=== PATIENT | female | born 1965 | race Caucasian/White ===

== ENCOUNTER → 2019-05-05 10:39 | Outpatient (BNVA) | payer MEDICARE, MEDICAID, SELFPAY | PROVIDERS: Family Provider Nurse Practitioner; PCP Nurse Practitioner; Visit Provider Obstetrics & Gynecology Female Pelvic Medicine and Reconstructive Surgery | DX: Z12.4 Encounter for screening for malignant neoplasm of cervix (principal); N39.3 Stress incontinence (female) (male); N95.0 Postmenopausal bleeding; E66.9 Obesity, unspecified; Z71.6 Tobacco abuse counseling | CPT/HCPCS: 81003; 88175 ==

== ENCOUNTER 2019-05-18 04:15 | Emergency (ER) | payer MEDICARE, MEDICAID, SELFPAY ==
[2019-05-18 04:22] VITALS: BP 163/76; PULSE 86; RESP 18; O2SAT 93; BMI 42.9
--- NOTE | 2019-05-18 04:22 | ED_ITS ---
Entered by Flores Mclain, acting as scribe for Arturo Nicole DO HPI - Female Genitourinary General: Chief complaint: Urogenital-Female Stated complaint: possible uti Time Seen by Provider: 05/18/19 04:22 Source: patient Mode of arrival: ambulatory Limitations: no limitations History of Present Illness: HPI Narrative: 53 yo f came to the er pov for a possible uti. Onset was a week ago. Pt said that she has the urge to urinate but only a little comes out. Pt said that she is having trouble urinating. Pt said that she woke up to the pain and having the urge to go to the bathroom and was still having trouble. Pt said that she also has COPD. MD elicited complaint: UTI Onset (ago): week(s) (1 week ago) Severity: mild Quality of pain: sharp Consistency: intermittent Vaginal discharge: none Vaginal bleeding: none Urinary symptoms: Difficulty Urinating Relieving factors: urination (mild) Associated symptoms: Deny abdominal pain or headache(s) Treatment prior to arrival: none Patient : No Date of Last Menstrual Period: 01/31/19 Review of Systems General: Reports: other (negative unless marked) Const: Denies: fever ENMT: Denies: throat pain Card: Denies: chest pain Resp: Denies: shortness of breath GI: Denies: abdominal pain : Reports: difficulty urinating, urinary dribbling and decreased urine ouput Musc: Denies: neck pain Skin/Breast: Denies: rash Neuro: Denies: headache Psych: Denies: anxiety PFSH ED PFSH: Social History Smoking and tobacco status: current every day smoker cigarettes Packs smoked per day: 1 Years cigarettes smoked: 13 Alcohol intake: current Alcohol intake frequency: holidays/special occasions only History of recent travel: No Female Reproductive History: Date of last menstrual period: 01/31/19 Physical Exam Const: COMMON NORMALS: no apparent distress GENERAL APPEARANCE: cooperative and comfortable ORIENTATION/CONSCIOUSNESS: Yes awake, Yes oriented to person, Yes oriented to place and Yes oriented to time HENMT: COMMON NORMALS: normocephalic, head/scalp atraumatic, hearing grossly normal bilaterally, external ears normal, EAC's normal, TM's normal bilaterally, nasal mucous membranes and turbinates normal, moist oral mucous membranes and oropharynx normal HEAD & SCALP: normocephalic and atraumatic NOSE: nasal mucous membranes and turbinates normal EXTERNAL EAR: Yes external ears normal EXTERNAL AUDITORY CANAL: EAC's normal TYMPANIC MEMBRANE: TM's normal bilaterally Eye: COMMON NORMALS: PERRL, EOMs intact bilaterally, conjunctivae normal and no scleral icterus CONJUNCTIVA: Yes conjunctivae normal PUPIL: Yes PERRL Neck/C-Spine: COMMON NORMALS: full ROM, no lymphadenopathy, supple and no JVD Lymph: LYMPHATIC: no lymphadenopathy noted and no lymphedema noted Resp: COMMON NORMALS: normal respiratory effort, no retractions, no use of accessory muscles and clear to auscultation bilaterally AUSCULTATION: clear to auscultation bilaterally Cardio: COMMON NORMALS: no JVD, regular rate, regular rhythm and no murmurs RATE: regular rate RHYTHM: regular rhythm GI: COMMON NORMALS: soft to palpation and no hepatosplenomegaly AUSCULTATION: Yes normoactive bowel sounds PALPATION: Yes soft, No tender, No guarding and Yes no hepatosplenomegaly : COMMON NORMALS: Yes no CVA tenderness BLADDER/KIDNEY EXAM: Yes no CVA tenderness Back/Pelvis: COMMON NORMALS: no CVA tenderness Extremity: COMMON NORMALS: normal to inspection, normal capillary refill, no clubbing, cyanosis or edema, no calf tenderness and no pedal edema Neuro: SENSORIUM/ORIENTATION: Yes oriented to person, Yes oriented to place and Yes oriented to time Skin: COMMON NORMALS: no rashes or lesions noted GENERAL SKIN EXAM: no rashes or lesions noted Course ED course: Reviewed UA. There is fair amount of contamination of urine but she is quite symptomatic and has been for 2 weeks working to go ahead and start on a course of Macrobid she did have improved follow-up with her primary care doctor for further evaluation. Vital Signs: Vital signs: Vital Signs Pulse Rate 86 05/18/19 04:22 Respiratory Rate 18 05/18/19 04:22 Blood Pressure 163/76 05/18/19 04:22 Pulse Oximetry 93 05/18/19 04:22 MDM - Female Lab Data: Labs: Lab Results 05/18/19 Range/Units 04:15 Urine Color Yellow (Yellow) Urine Appearance Hazy A (CLEAR) Urine pH 5 (5-7) Ur Specific Gravit y 1.025 (1.005-1.030) Urine Protein Trace (Negative) Urine Glucose (UA) Norm (Normal) Urine Ketones Negative (Negative) Urine Blood 3+ H (Negative) Urine Nitrate Negative (Negative) Urine Bilirubin Neg (NEGATIVE) Urine Urobilinogen 1 H (Negative) mg/dL Ur Leukocyte Caitlyn ase Negative (Negative) Urine RBC 15-25 H (0-2) /hpf Urine WBC 0-4 H (0-5) /hpf Ur Squamous Epith Cells 40-55 H (0-5) Ur Transition Epit h Cell 0-4 /hpf Urine Bacteria 4+ H (NONE) Urine Mucus 4+ Discharge Plan Discharge Patient Disposition: Home, Self-Care Clinical Impression: Cystitis Condition: Stable Prescriptions: New Macrodantin 100 mg capsule 100 mg PO Q12H 7 Days Qty: 14 RF: 0 No Action albuterol sulfate [Ventolin HFA] 90 mcg/actuation HFA aerosol inhaler 2 puff INHALATION Q6H PRN (Reason: shortness of breath or wheezing) Qty: 18 RF: 2 paliperidone [Invega] 6 mg tablet extended release 24hr 6 mg PO QAM Qty: 30 RF: 2 trazodone 100 mg tablet 100 mg PO DAILY Qty: 30 RF: 2 Discharge Orders: Discharge Order (Routine); Ordered 05/18/19 Ordered By: Arturo Nicole Referrals: Nelly Luevano FNP [Primary Care Provider] - Discharge Diet: Usual diet Discharge Activity: Resume usual activity Patient Instructions: Urinary Tract Infection in Women (ED) Coding Level of Care Code ED Bunk House Worker for Chg Fwd Exam Comprehensive The documentation recorded by the Chemo bethea Stephanie Lyn, accurately reflects the service I personally performed and the decisions made by Bonnie durand Curtis L, DO May 18, 2019 04:15
[2019-05-18 04:46] LABS: Protein Urine Trace (Negative); Specific Gravity, Urine 1.025 (1.005-1.030); Urine Appearance Hazy (CLEAR); Urine Color Yellow (Yellow); pH Urine 5 (5-7)
[2019-05-18 04:47] LABS: Bilirubin Urine Neg (NEGATIVE); Blood Urine 3+ (Negative); Glucose Urine UA Norm (Normal); Ketones Urine Negative (Negative); Leukocyte Esterase Urine Negative (Negative); Nitrate Urine Negative (Negative); Urobilinogen Urine 1 mg/dL (Negative)
[2019-05-18 04:55] LABS: Mucus Urine 4+
[2019-05-18 04:56] LABS: RBC Urine 15-25 /hpf (0-2); WBC Urine 0-4 /hpf (0-5)
[2019-05-18 04:57] LABS: Add Urine Culture? No; Bacteria Urine 4+; Squamous Epithelial Cell Urine 40-55 (0-5); Transitional Epi Cells Urine 0-4 /hpf
[2019-05-18 05:07] VITALS: BP 146/54; PULSE 77; RESP 18; O2SAT 96
== END 2019-05-18 05:09 | disposition home or self-care (01) ==
PROVIDERS: Emergency Provider Family Medicine; Family Provider Nurse Practitioner; PCP Nurse Practitioner
DX: N30.90 Cystitis, unspecified without hematuria (principal); F17.210 Nicotine dependence, cigarettes, uncomplicated
CPT/HCPCS: 12345; 81001; 99282; A9270

== ENCOUNTER → 2019-05-29 10:19 | Outpatient (BNVA) | payer MEDICARE, MEDICAID, SELFPAY | PROVIDERS: Family Provider Nurse Practitioner; PCP Nurse Practitioner; Visit Provider Nurse Practitioner | DX: N39.0 Urinary tract infection, site not specified (principal); R35.0 Frequency of micturition; R39.11 Hesitancy of micturition | CPT/HCPCS: 81000; 87086 ==

== ENCOUNTER 2019-08-02 05:00 | Emergency (ER) | payer MEDICARE, MEDICAID, SELFPAY ==
[2019-08-02 05:10] VITALS: BP 123/59; PULSE 78; RESP 16; TEMP 36.4; O2SAT 96; BMI 41.1
--- NOTE | 2019-08-02 05:22 | ED_ITS ---
HPI - Female Genitourinary General: Chief complaint: Urogenital-Female Stated complaint: difficulty urinating Time Seen by Provider: 08/02/19 05:22 History of Present Illness: HPI Narrative: 53-year-old female states she has been battling urinary tract infections for the last couple of months. She has been on 2 different antibiotics, with temporary relief. She states for the last several days she has had significant urgency, having to run to the bathroom quite often. She only goes a little when she is able to go. She has mild dysuria. She does have some mild pain across her back as well. No fever or chills. No vomiting. She states no blood in her urine, no vaginal discharge or vaginal bleeding. MD elicited complaint: dysuria, UTI and difficulty urinating Onset (ago): day(s) Location of symptoms: suprapubic Severity: moderate Female Urogenital Radiation: Non-Radiating Quality of pain: cramping Consistency: intermittent Vaginal discharge: none Vaginal bleeding: none Urinary symptoms: Difficulty Urinating and Dysuria Exacerbating factors: none Relieving factors: urination Associated symptoms: Reports nausea; Deny abdominal pain or headache(s) Review of Systems Const: Denies: fever(s) or chills Eyes: Denies: change in vision or blurry vision ENMT: Denies: post nasal drip or sinus pain Card: Denies: chest pain, palpitations, irregular heart rhythm or swelling of feet/ankles Resp: Denies: dyspnea, productive cough, non-productive cough or wheezing GI: Reports: nausea; Denies: abdominal pain or vomiting : Reports: dysuria, urinary frequency and urinary urgency; Denies: hematuria Musc: Reports: back pain; Denies: neck pain, joint redness or joint warmth Skin/Breast: Denies: rash, pruritus or erythema Neuro: Denies: headache(s), dizziness or vertigo Psych: Denies: anxiety PFSH ED PFSH: Medical History (Updated 05/29/19 @ 10:56 by LISA Augustin) COPD (chronic obstructive pulmonary disease) Depression Schizophrenia Surgical History History of hernia repair Family History Father Cancer Diabetes Heart disease Family/Other Cervical cancer Social History Smoking and tobacco status: current every day smoker cigarettes Packs smoked per day: 1 Years cigarettes smoked: 13 Alcohol intake: current Alcohol intake frequency: holidays/special occasions only History of recent travel: No Physical Exam Const: GENERAL APPEARANCE: well developed ORIENTATION/CONSCIOUSNESS: Yes oriented to person, Yes oriented to place and Yes oriented to time HENMT: COMMON NORMALS: normocephalic, external ears normal and Normal external nose present HEAD & SCALP: normocephalic FACE & SINUS: normal facial exam NOSE: Normal external nose present and No nasal discharge present EXTERNAL EAR: Yes external ears normal MOUTH: tongue normal Eye: COMMON NORMALS: Equal, round and reactive pupils present, EOMs intact bilaterally and conjunctivae normal EYELID: eyelids normal CONJUNCTIVA: Yes conjunctivae normal PUPIL: Yes Equal, round and reactive pupils present Neck/C-Spine: GENERAL: No tracheal deviation Chest: COMMONS NORMALS: normal inspection of the chest CHEST: No tenderness Resp: COMMON NORMALS: clear to auscultation bilaterally EFFORT & INSPECTION: No tachypneic, No respiratory distress, No retractions, No uses accessory muscles and No tracheal deviation AUSCULTATION: clear to auscultation bilaterally, no rhonchi, no wheezes and lung sounds not diminished Cardio: COMMON NORMALS: regular rate and regular rhythm RATE: regular rate RHYTHM: regular rhythm HEART SOUNDS: no murmurs PERIPHERAL PULSES: radial pulses present GI: INSPECTION: No abdominal distension AUSCULTATION: No Hyperactive bowel sounds present and No Hypoactive bowel sounds present PALPATION: No Guarding due to palpation present (GI) and No Rigid due to palpation PERCUSSION: no dullness to percussion and no tympanic to percussion : COMMON NORMALS: Yes no CVA tenderness BLADDER/KIDNEY EXAM: Yes no CVA tenderness Back/Pelvis: COMMON NORMALS: no CVA tenderness Neuro: SENSORIUM/ORIENTATION: Yes oriented to person, Yes oriented to place and Yes oriented to time Psych: COMMON NORMALS: mental status grossly normal Skin: COMMON NORMALS: no rashes or lesions noted GENERAL SKIN EXAM: no rashes or lesions noted Course Vital Signs: Vital signs: Vital Signs Temperature 97.6 F 08/02/19 05:10 Pulse Rate 78 06/01/20 05:10 Respiratory Rate 16 08/02/19 05:10 Blood Pressure 123/59 08/02/19 05:10 Pulse Oximetry 96 08/02/19 05:10 MDM - Female 2 MDM Narrative: Medical decision making narrative: 53-year-old lady with dysuria frequency and urgency. She has been treated twice for urinary tract infections in the last couple of months without permanent improvement. Her urinalysis does not show significant signs of urinary tract infection although it is contaminated. She does have significant hematuria. We will repeat her urine with a cath, order some lab and CT as there is some concern about another possible etiology such as a stone. She will be checked out to Dr. Campoverde at shift change. Lab Data: Labs: Lab Results 08/02/19 Range/Units 05:30 Urine Color Yellow (Yellow) Urine Appearance Hazy A (CLEAR) Urine pH 5 (5-7) Ur Specific Gravit y 1.025 (1.005-1.030) Urine Protein 1+ H (Negative) Urine Glucose (UA) Norm (Normal) Urine Ketones 1+ H (Negative) Urine Blood 3+ H (Negative) Urine Nitrate Negative (Negative) Urine Bilirubin Neg (NEGATIVE) Urine Urobilinogen 1 H (Negative) mg/dL Ur Leukocyte Caitlyn ase Trace H (Negative) Urine RBC 25-40 H (0-2) /hpf Urine WBC 5-10 H (0-5) /hpf Ur Squamous Epith Cells 15-25 H (0-5) Urine Bacteria 2+ H (NONE) Discharge Plan Discharge Prescriptions: No Action albuterol sulfate [Ventolin HFA] 90 mcg/actuation HFA aerosol inhaler 2 puff INHALATION Q6H PRN (Reason: shortness of breath or wheezing) Qty: 18 RF: 2 paliperidone [Invega] 6 mg tablet extended release 24hr 6 mg PO QAM Qty: 30 RF: 2 trazodone 100 mg tablet 100 mg PO DAILY Qty: 30 RF: 2 Coding Level of Care Code ED Patient Escort for Chg Fwd Exam Comprehensive
[2019-08-02 06:10] LABS: Add Urine Microscopic? YES; Bilirubin Urine Neg (NEGATIVE); Blood Urine 3+ (Negative); Glucose Urine UA Norm (Normal); Ketones Urine 1+ (Negative); Leukocyte Esterase Urine Trace (Negative); Nitrate Urine Negative (Negative); Protein Urine 1+ (Negative); Specific Gravity, Urine 1.025 (1.005-1.030); Urine Appearance Hazy (CLEAR); Urine Color Yellow (Yellow); Urobilinogen Urine 1 mg/dL (Negative); pH Urine 5 (5-7)
[2019-08-02 06:11] LABS: Add Urine Culture? No; Bacteria Urine 2+; RBC Urine 25-40 /hpf (0-2); Squamous Epithelial Cell Urine 15-25 (0-5)
--- NOTE | 2019-08-02 06:22 | CTR_ITS ---
PROCEDURE INFORMATION: Exam: CT Abdomen And Pelvis With Contrast Exam date and time: 08/02/2019 6:32 AM Age: 53 years old Clinical indication: Abdominal pain; Localized; Right; Prior surgery; Surgery type: Hernia repair; Patient HX: RT sided abdomen pain. Patient states has been dealing with urinary infection for a few weeks. TECHNIQUE: Imaging protocol: Computed tomography of the abdomen and pelvis with intravenous contrast. Radiation optimization: All CT scans at this facility use at least one of these dose optimization techniques: automated exposure control; mA and/or kV adjustment per patient size (includes targeted exams where dose is matched to clinical indication); or iterative reconstruction. Contrast material: Omnipaque 300; Contrast volume: 95 ml; Contrast route: IV; COMPARISON: No relevant prior studies available. RADIATION DOSE METRICS: Total DLP: 1288.03 mGy-cm FINDINGS: Liver: Mild diffuse hypoattenuation of the liver is present consistent with hepatic steatosis. Gallbladder and bile ducts: The gallbladder is partially contracted. Pancreas: Normal. No ductal dilation. Spleen: Normal. No splenomegaly. Adrenals: Normal. No mass. Kidneys and ureters: The right pelvic ureter is mildly dilated to the level of a 4.9 x 2.9 mm calculus at the ureterovesical junction. The right kidney shows moderate pelviectasis and mild abdominal ureterectasis with mild central sinus perinephric stranding. Mildly diminished right renal enhancement. Left mid renal 1.5 mm calyceal calculus. 8.4 mm left renal benign simple cyst. Smaller left renal lower pole exophytic benign simple cyst. No specific followup required/recommended. Stomach and bowel: Unremarkable. No obstruction. No mucosal thickening. Appendix: The vermiform appendix is normal. Intraperitoneal space: Unremarkable. No free air. No significant fluid collection. Vasculature: Mild aortic atherosclerotic calcification without aneurysm. The iliac arteries show mild bilateral atherosclerotic calcifications without evidence of aneurysm. Lymph nodes: No enlarged lymph nodes. Bladder: The urinary bladder is decompressed and difficult to assess. Reproductive: 2.4 cm right uterine corporal subserosal leiomyoma. Left uterine fundal 17 mm subserosal leiomyoma. Bones/joints: Bilateral lower lumbar facet primary osteoarthritis. Soft tissues: Unremarkable. CT/CT abdomen pelvis w con* [id number] IMPRESSION: 1. Right obstructive uropathy secondary to a right ureterovesical junction calculus. 2. Left renal calyceal lithiasis. 3. Uterine leiomyomas. 4. Fatty infiltration of the liver. COMMENTS: Consistent with the [employer]'s Incidental Findings Committee white paper (J Am Sendy Radiol 2018): Any incidental renal lesion less than 1.0 cm or classified as too small to characterize, or any incidental cystic renal lesion characterized as simple-appearing, is likely benign. No follow-up imaging is recommended for these lesions per consensus recommendations based on imaging criteria. Radiation Dose CTDIVOL = (mGy): DLP = 1288.03 (mGy-cm)
[2019-08-02 06:53] LABS: Basophils # 0.1 10^3/uL (0.0-0.1); Basophils % 0.5 %; Eosinophils # 0.2 10^3/uL (0.0-0.8); Eosinophils % 0.8 %; Hematocrit 47.2 % (37.0-47.0); Hemoglobin 15.1 g/dL (11.5-15.3); Lymphocytes # 6.6 10^3/uL (0.8-4.8); Mean Corpuscular Hemoglobin 31.1 pg (28.0-34.0); Mean Corpuscular Volume 97.3 fL (81-99); Mean Platelet Volume 9.6 fL (7.4-10.4); Monocytes # 1.3 10^3/uL (0.2-0.9); Monocytes % 6.7 %; Neutrophils # 11.7 10^3/uL (1.8-7.7); Neutrophils % 58.6 %; Nucleated Red Blood Cells % 0 %; Platelet Count 413 10^3/cmm (130-400); Red Blood Count 4.85 10^6/uL (4.1-5.3); Red Cell Distribution Width 13.4 % (12.1-15.1); White Blood Count 19.9 10^3/uL (4.0-10.0)
[2019-08-02] MEDS: sodium chloride 0.9% 1,000 ML 2000 ML IV (06:56)
[2019-08-02 06:57] VITALS: BP 116/73; PULSE 68; RESP 18; O2SAT 94
[2019-08-02 07:11] LABS: Alanine Aminotransferase 20 U/L (0-33); Albumin Level 4.6 g/dL (3.5-5.2); Alkaline Phosphatase 89 IU/L (35-105); Anion Gap 16.3 (5-19); Aspartate Amino Transferase 18 U/L (0-32); Blood Urea Nitrogen 20 mg/dL (6-20); Carbon Dioxide 23 mmol/L (22-29); Chloride 104 mmol/L (98-107); Globulin 2.5 g/dL (1.3-4.6); Glucose 105 mg/dL (65-115); Osmolality Calculated 285 mOsm/kg (285-295); Potassium 4.3 mmol/L (3.5-5.1); Sodium 139 mmol/L (136-145); Total Bilirubin 0.4 mg/dL (0.15-1.2); Total Protein 7.1 g/dL (6.6-8.7)
[2019-08-02] MEDS: iohexol 300 mg/mL 100 mL Btl IV (07:11)
[2019-08-02 07:36] LABS: Bilirubin Urine 1+ (NEGATIVE); Blood Urine 3+ (Negative); Glucose Urine UA Norm (Normal); Ketones Urine 1+ (Negative); Leukocyte Esterase Urine Negative (Negative); Nitrate Urine Negative (Negative); Protein Urine 1+ (Negative); Urine Appearance SL Hazy (CLEAR); Urine Color Yellow (Yellow); Urobilinogen Urine 1 mg/dL (Negative); pH Urine 5 (5-7)
[2019-08-02 07:47] LABS: Add Urine Microscopic? YES
[2019-08-02 08:00] VITALS: RESP 16; O2SAT 97
[2019-08-02] MEDS: morphine 4 mg/mL SDV 1 mL 6 MG IVP (08:00)
[2019-08-02] MEDS: ondansetron 2 mg/ML SDV 2 mL 4 MG IVP (08:01)
[2019-08-02 08:54] VITALS: BP 131/72; PULSE 83; RESP 16; RESP 17; O2SAT 98
--- NOTE | 2019-08-04 14:27 | DCPLANNER ---
Addendum entered by Lauryn Kohli 08/11/19 15:10: Clinic is waiting for patient to call clinic after being released from the hospital. Original Note: truck manager had message to schedule a follow up appointment for patient with Dr. Oliva. truck manager called the office of Dr. Oliva, spoke with Mis, gave clinic patients information. truck manager was told that patients information would be printed and given to [place] for review. Clinic will call patient with appointment information.
== END 2019-08-02 08:56 | disposition home or self-care (01) ==
PROVIDERS: Emergency Medicine; Emergency Provider Family Medicine; PCP Nurse Practitioner
DX: N20.1 Calculus of ureter (principal); J44.9 Chronic obstructive pulmonary disease, unspecified; F17.210 Nicotine dependence, cigarettes, uncomplicated
CPT/HCPCS: 12345; 51798; 74177; 80053; 81001; 85025; 87086; 96374; 96375; 99283; 99284; J2270; J2405; J7030; Q9967

== ENCOUNTER 2019-08-03 10:29 | Inpatient (IN) | payer MEDICARE, MEDICAID, SELFPAY ==
[2019-08-03 10:35] VITALS: BP 157/102; PULSE 114; RESP 18; TEMP 36.9; O2SAT 96; BMI 41.1
--- NOTE | 2019-08-03 10:49 | W.ED.PSYCH ---
HPI - Psych General: Chief Complaint: Psychiatric Symptoms Stated Complaint: 96 HR HOLD Time Seen by Provider: 08/03/19 10:33 History of Present Illness: HPI Narrative: She arrives in the custody of law enforcement. Patient states that her and her are , and that he had let unknown people in the house during the night. Law enforcement was not able to find any evidence that anyone else had been at the home. MD complaint: altered mental status Onset (ago): unknown Duration: constant Relieving factors: none Exacerbating factors: none Context: recent drug abuse (Suspected by me) Associated psychiatric symptoms: visual hallucinations and delusions Associated symptoms: Reports visual hallucinations and delusions Treatments prior to arrival: none Review of Systems General: Reports: 10 or more systems reviewed and unremarkable except in HPI and below Psych: Reports: visual hallucinations PFS ED PFSH: Medical History COPD (chronic obstructive pulmonary disease) Depression Schizophrenia Surgical History History of hernia repair Family History Father Cancer Diabetes Heart disease Family/Other Cervical cancer Social History Smoking and tobacco status: current every day smoker cigarettes Packs smoked per day: 1 Years cigarettes smoked: 13 Alcohol intake: current Alcohol intake frequency: holidays/special occasions only History of recent travel: No Physical Exam Const: COMMON NORMALS: no acute distress, patient oriented x3 and alert HENMT: COMMON NORMALS: normocephalic HEAD & SCALP: normocephalic Neck/C-Spine: COMMON NORMALS: full ROM, supple, no meningeal signs and no JVD Resp: COMMON NORMALS: normal respiratory effort, No use of accessory muscles and clear to auscultation bilaterally AUSCULTATION: clear to auscultation bilaterally Cardio: COMMON NORMALS: no JVD, regular rate and regular rhythm RATE: regular rate RHYTHM: regular rhythm Neuro: COMMON NORMALS: patient oriented x3 SENSORIUM/ORIENTATION: Yes alert MENINGEAL SIGNS: Yes no meningeal signs Psych: APPEARANCE: Yes unkempt ACTIVITY/MOTOR BEHAVIOR: Yes psychomotor agitation, Yes fidgeting and Yes restless MOOD & AFFECT: Yes apathetic THOUGHT CONTENT: Yes delusions and Yes Hallucination(s) present MDM - Psych Lab Data: Labs: Lab Results 08/03/19 08/03/19 08/03/19 Range/Units 10:48 10:48 10:50 WBC 13.8 H (4.0-10.0) 10^3/ uL RBC 4.57 (4.1-5.3) 10^6/u L Hgb 14.8 (11.5-15.3) g/dL Hct 44.7 (37.0-47.0) % MCV 97.8 (81-99) fL MCH 32.4 (28.0-34.0) pg MCHC 33.1 (30.0-36.0) g/dL RDW 13.5 (12.1-15.1) % Plt Count 361 (130-400) 10^3/c mm MPV 9.3 (7.4-10.4) fL Neut % (Auto) 56.0 % Lymph % (Auto) 35.3 % Jackson % (Auto) 5.9 % Eos % (Auto) 2.0 % Baso % (Auto) 0.4 % Neut # (Auto) 7.8 H (1.8-7.7) 10^3/u L Lymph # (Auto) 4.9 H (0.8-4.8) 10^3/u L Jackson # (Auto) 0.8 (0.2-0.9) 10^3/u L Eos # (Auto) 0.3 (0.0-0.8) 10^3/u L Baso # (Auto) 0.1 (0.0-0.1) 10^3/u L Nucleated RBC % (a uto) 0 % Nucleated RBCs # 0.0 /100WBC Sodium 138 (136-145) mmol/L Potassium 3.9 (3.5-5.1) mmol/L Chloride 103 (98-107) mmol/L Carbon Dioxide 23 (22-29) mmol/L Anion Gap 15.9 (5-19) BUN 11 (6-20) mg/dL Creatinine 0.7 (0.5-0.9) mg/dL GFR Calculation 87.5 L (90-130) mL/min Glucose 136 H (65-115) mg/dL Calculated Osmolal ity 284 L (285-295) mOsm/k g Calcium 10.1 (8.5-10.5) mg/dL Total Bilirubin 0.5 (0.15-1.2) mg/dL AST 24 (0-32) U/L ALT 22 (0-33) U/L Alkaline Phosphata se 86 (35-105) IU/L Total Protein 7.0 (6.6-8.7) g/dL Albumin 4.5 (3.5-5.2) g/dL Globulin 2.5 (1.3-4.6) g/dL TSH 2.50 (0.27-4.20) uIU/ mL Urine Color Yellow (Yellow) Urine Appearance Hazy A (CLEAR) Urine pH 5.0 (5-7) Ur Specific Gravit y 1.025 (1.005-1.030) Urine Protein Neg (Negative) Urine Glucose (UA) Norm (Normal) Urine Ketones Negative (Negative) Urine Blood Neg (Negative) Urine Nitrate Negative (Negative) Urine Bilirubin Neg (NEGATIVE) Urine Urobilinogen Norm (Negative) mg/dL Ur Leukocyte Caitlyn ase Negative (Negative) Urine RBC 0-4 H (0-2) /hpf Urine WBC 5-10 H (0-5) /hpf Ur Squamous Epith Cells 15-25 H (0-5) Urine Bacteria 1+ H (NONE) Urine Mucus 2+ Salicylates < 0.3 L (3-10) mg/dL Urine Opiates Scre en (Negative) ng/mL Acetaminophen < 5.0 L (10-30) ug/mL Ur Barbiturates Sc reen (Negative) ng/mL Ur Phencyclidine S crn (Negative) ng/mL Ur Amphetamines Sc reen (Negative) ng/mL U Benzodiazepines Scrn (Negative) ng/mL Urine Cocaine Scre en (Negative) ng/mL U Marijuana (THC) Screen (Negative) ng/mL Ethyl Alcohol < 10 (0-10) mg/dL 08/03/19 Range/Units 10:50 WBC (4.0-10.0) 10^3/ uL RBC (4.1-5.3) 10^6/u L Hgb (11.5-15.3) g/dL Hct (37.0-47.0) % MCV (81-99) fL MCH (28.0-34.0) pg MCHC (30.0-36.0) g/dL RDW (12.1-15.1) % Plt Count (130-400) 10^3/c mm MPV (7.4-10.4) fL Neut % (Auto) % Lymph % (Auto) % Jackson % (Auto) % Eos % (Auto) % Baso % (Auto) % Neut # (Auto) (1.8-7.7) 10^3/u L Lymph # (Auto) (0.8-4.8) 10^3/u L Jackson # (Auto) (0.2-0.9) 10^3/u L Eos # (Auto) (0.0-0.8) 10^3/u L Baso # (Auto) (0.0-0.1) 10^3/u L Nucleated RBC % (a uto) % Nucleated RBCs # /100WBC Sodium (136-145) mmol/L Potassium (3.5-5.1) mmol/L Chloride (98-107) mmol/L Carbon Dioxide (22-29) mmol/L Anion Gap (5-19) BUN (6-20) mg/dL Creatinine (0.5-0.9) mg/dL GFR Calculation (90-130) mL/min Glucose (65-115) mg/dL Calculated Osmolal ity (285-295) mOsm/k g Calcium (8.5-10.5) mg/dL Total Bilirubin (0.15-1.2) mg/dL AST (0-32) U/L ALT (0-33) U/L Alkaline Phosphata se (35-105) IU/L Total Protein (6.6-8.7) g/dL Albumin (3.5-5.2) g/dL Globulin (1.3-4.6) g/dL TSH (0.27-4.20) uIU/ mL Urine Color (Yellow) Urine Appearance (CLEAR) Urine pH (5-7) Ur Specific Gravit y (1.005-1.030) Urine Protein (Negative) Urine Glucose (UA) (Normal) Urine Ketones (Negative) Urine Blood (Negative) Urine Nitrate (Negative) Urine Bilirubin (NEGATIVE) Urine Urobilinogen (Negative) mg/dL Ur Leukocyte Caitlyn ase (Negative) Urine RBC (0-2) /hpf Urine WBC (0-5) /hpf Ur Squamous Epith Cells (0-5) Urine Bacteria (NONE) Urine Mucus Salicylates (3-10) mg/dL Urine Opiates Scre en Negative (Negative) ng/mL Acetaminophen (10-30) ug/mL Ur Barbiturates Sc reen Negative (Negative) ng/mL Ur Phencyclidine S crn Negative (Negative) ng/mL Ur Amphetamines Sc reen Positive H (Negative) ng/mL U Benzodiazepines Scrn Negative (Negative) ng/mL Urine Cocaine Scre en Negative (Negative) ng/mL U Marijuana (THC) Screen Positive H (Negative) ng/mL Ethyl Alcohol (0-10) mg/dL Discharge Plan Discharge Patient Disposition: Admitted As Inpatient Clinical Impression: Acute psychosis, Methamphetamine abuse Drug-induced psychotic disorder Qualifiers: Complication of substance-induced condition: with hallucinations Qualified Code(s): F19.951 - Other psychoactive substance use, unspecified with psychoactive substance-induced psychotic disorder with hallucinations Condition: Fair Referrals: Nelly Luevano FNP [Primary Care Provider] - Coding Level of Care Code ED Highway Safety Engineer for [facility] Fwd Exam Detailed
[2019-08-03 10:52] LABS: Basophils # 0.1 10^3/uL (0.0-0.1); Basophils % 0.4 %; Eosinophils # 0.3 10^3/uL (0.0-0.8); Hematocrit 44.7 % (37.0-47.0); Hemoglobin 14.8 g/dL (11.5-15.3); Lymphocytes # 4.9 10^3/uL (0.8-4.8); Lymphocytes % 35.3 %; Mean Corpuscular HGB Conc 33.1 g/dL (30.0-36.0); Mean Corpuscular Hemoglobin 32.4 pg (28.0-34.0); Mean Corpuscular Volume 97.8 fL (81-99); Mean Platelet Volume 9.3 fL (7.4-10.4); Monocytes # 0.8 10^3/uL (0.2-0.9); Monocytes % 5.9 %; Neutrophils # 7.8 10^3/uL (1.8-7.7); Nucleated Red Blood Cells % 0 %; Platelet Count 361 10^3/cmm (130-400); Red Blood Count 4.57 10^6/uL (4.1-5.3); Red Cell Distribution Width 13.5 % (12.1-15.1); White Blood Count 13.8 10^3/uL (4.0-10.0)
[2019-08-03] MEDS: ziprasidone 20 mg/mL SDV 10 MG IM (11:16)
[2019-08-03 11:21] LABS: Alanine Aminotransferase 22 U/L (0-33); Albumin Level 4.5 g/dL (3.5-5.2); Alkaline Phosphatase 86 IU/L (35-105); Anion Gap 15.9 (5-19); Aspartate Amino Transferase 24 U/L (0-32); Blood Urea Nitrogen 11 mg/dL (6-20); Calcium 10.1 mg/dL (8.5-10.5); Carbon Dioxide 23 mmol/L (22-29); Chloride 103 mmol/L (98-107); Globulin 2.5 g/dL (1.3-4.6); Glomerular Filtration Rate 87.5 mL/min (90-130); Glucose 136 mg/dL (65-115); Osmolality Calculated 284 mOsm/kg (285-295); Potassium 3.9 mmol/L (3.5-5.1); Sodium 138 mmol/L (136-145); Total Bilirubin 0.5 mg/dL (0.15-1.2)
[2019-08-03 11:34] LABS: Acetaminophen < 5.0 ug/mL (10-30); Alcohol Level < 10 mg/dL (0-10); Salicylate < 0.3 mg/dL (3-10)
[2019-08-03 11:42] LABS: Add Urine Culture? No; Add Urine Microscopic? YES; Bacteria Urine 1+; Bilirubin Urine Neg (NEGATIVE); Blood Urine Neg (Negative); Glucose Urine UA Norm (Normal); Ketones Urine Negative (Negative); Leukocyte Esterase Urine Negative (Negative); Mucus Urine 2+; Nitrate Urine Negative (Negative); Protein Urine Neg (Negative); RBC Urine 0-4 /hpf (0-2); Specific Gravity, Urine 1.025 (1.005-1.030); Squamous Epithelial Cell Urine 15-25 (0-5); Urine Appearance Hazy (CLEAR); Urine Color Yellow (Yellow); Urobilinogen Urine Norm (Negative)
[2019-08-03 12:38] LABS: Amphetamines Screen Urine Positive (Negative); Barbiturates Screen Urine Negative (Negative); Benzodiazepines Screen Urine Negative (Negative); Cocaine Screen Urine Negative (Negative); Opiate Screen Urine Negative (Negative); PCP Screen Urine Negative (Negative); THC Screen Urine Positive (Negative)
[2019-08-03 14:00] VITALS: BP 99/63; PULSE 72; RESP 18; TEMP 36.8; O2SAT 90
[2019-08-03 14:20] VITALS: BP 109/69; PULSE 98; RESP 18; O2SAT 99
[2019-08-03 22:00] VITALS: BP 120/71; PULSE 72; RESP 16; TEMP 37.2; O2SAT 93
[2019-08-04 06:00] VITALS: BP 154/112; PULSE 81; RESP 16; TEMP 37.1; O2SAT 92
[2019-08-04] MEDS: paliperidone ER 6 mg Tablet PO (06:34)
[2019-08-04] MEDS: tamsulosin 0.4 mg Capsule PO (08:58)
--- NOTE | 2019-08-04 10:02 | P.HP_ITS ---
Providers/Chief Complaint Admitting Physician: Collins Palmer MD Primary Care Provider: LISA Monte Chief Complaint: 96 HR HOLD HPI NPU History of Present Illness Ann Gerber is a 53 year old female The patient presented to the emergency room reporting that her and her had been , and that he had let some people into her home during the night. She arrived with law enforcement who could not find any evidence that anyone else had been in the home, so they brought her to the emergency room secondary to acute psychosis. She was admitted to the neuropsychiatric unit for definitive treatment of those issues. When she presented to the neuropsychiatric unit, she was able to acknowledge that she has significant issues with active addiction. Her UDS was positive for methamphetamine. She was a limited historian but did report that she has been having problems with her addiction for at least one year. She reports that she has had some other hospitalizations but was unable to give some sense of how long. She endorsed that she was struggling with depression and felt that she needs help. We discussed her psychotic symptoms and she seemed to suggest that she has had them predating the methamphetamine abuse, so we discussed the risks, benefits, and alternatives of initiating Invega, and she understood and agreed to proceed as is documented in this note. PSYCHIATRIC HISTORY: Limited information from her but appears she has had previous psychiatric care, but not here at [facility], so we can not find any evidence of that. SUBSTANCE ABUSE HISTORY: She endorses that she does smoke cigarettes, and acknowledges her metham phetamine issues, but there is no sense of whether she has had drug rehabilitations or DUIs. FAMILY HISTORY: She denied significant mental health issues, addiction issues, or suicide attempts or completions in her family. DEVELOPMENTAL HISTORY: She denies any issues with her mother?s or delivery of her. She reports she learned how to walk and talk and met developmental milestones on time. She denies speech therapy, learning support, emotional support, or special education classes. PSYCHOSOCIAL HISTORY: She reports that her mother and father were together when she was born. She is the youngest of their two children; she has an older brother. She reports her mom does not have any other children, but she is not sure if her dad does. She reports that her childhood was alright and that there was no emotional, physical, or sexual abuse. She reports that she did not graduate from high school, she went until tenth grade; and it was unclear of whether or not she got her GED. She endorses being a heterosexual, with her longest relationship being fourteen years. She endorses being once and never . She denies having any children. She denies being in the . She endorses being a Hindu. She reports that her longest job was a couple of years. She currently lives in a trailer with her significant other. LEGAL HISTORY: She reports that she has been in residential a couple of times but could not give a lot of history on that. Meds NPU Home Medications Medication Instructions Recorded Confirmed Last Taken Type Flomax 0.4 mg PO DAILY 30 Days #30 cap 08/07/19 08/03/19 08/03/19 Rx Invega 6 mg PO QAM 30 Days #30 tab 08/07/19 08/03/19 08/03/19 Rx Ventolin HFA 2 puff INHALATION Q6H PRN 30 Days 08/07/19 08/03/19 08/03/19 Rx #18 gm Zofran 4 mg PO Q6H PRN 30 Days #20 tab 08/07/19 08/03/19 08/03/19 Rx hydrocodone-acetaminophen 1 tab PO Q6H PRN 30 Days #20 tab 08/07/19 08/03/19 08/03/19 Rx trazodone 100 mg PO DAILY 30 Days #30 tab 08/07/19 08/03/19 08/02/19 Rx Allergies Allergy/AdvReac Type Severity Reaction Status Date / Time No Known Allergies Allergy Verified 08/03/19 10:42 PFSH NPU PFSH: Medical History COPD (chronic obstructive pulmonary disease) Depression Schizophrenia Surgical History History of hernia repair Family History Father Cancer Diabetes Heart disease Family/Other Cervical cancer Social History Smoking and tobacco status: current every day smoker cigarettes Packs smoked per day: 1 Years cigarettes smoked: 13 Alcohol intake: current Alcohol intake frequency: holidays/special occasions only History of recent travel: No Mental Status Exam MSE Comments: This is an obese vs. morbidly obese, white female, with adequate dress, grooming, and eye contact. No abnormal movements, except for psychomotor retardation. Semi-cooperative with exam in no acute distress. Speech was decreased rate and volume. Mood described as okay; affect subdued. Thought process, organized. Thought content: patient denied any suicidal or homicidal ideation, there were no delusions reported but there was paranoia noted, she did not appear to be attending to internal stimuli. Attention and concentration were limited, and memory was unreliable, but none were formally tested. She is alert and oriented times three. Insight and judgment are impaired. Impulse control is impaired. Vitals/I&O/Wt Last Vital Signs Temp 98.8 F 08/04/19 06:00 Pulse 81 08/04/19 06:00 Resp 16 08/04/19 06:00 BP 154/112 08/04/19 06:00 Pulse Ox 92 08/04/19 06:00 Data NPU : 08/03/19 10:48 08/03/19 10:48 A&P Assessment and plan (1) Schizophrenia: Status: Acute (2) Skin lesion of lower extremity: Status: Acute (3) COPD (chronic obstructive pulmonary disease): Status: Acute (4) Post-menopausal bleeding: Status: Acute (5) AMBER (stress urinary incontinence, female): Status: Acute (6) Obesity (BMI 35.0-39.9 without comorbidity): Status: Acute (7) Tobacco abuse counseling: Status: Acute (8) UTI (urinary tract infection): Status: Acute Additional A&P Information This is a 53 year old, white female, with reports of psychosis predating addiction, with methamphetamine use, which is either contributing to or causing the current psychotic episode that brought her to the hospital, who presents open to starting medication. Continue current medications, except: Start Invega 6 mg po q daily. Encourage individual, group, and milieu therapy. Continue q-15 minute checks for safety. Will encourage her to discharge to the highest level of sober living treatment to which she is willing to commit. Involuntary Hold Information 96 Hour Hold: 96 Hour Involuntary Admission: No 21 Day Hold: 21 Day Involuntary Hold: No Other Hold: Other Involuntary Hold (indicate): No Attestations NPU Medical Necessity Statement*: Inpatient hospitalization is medically necessary and the clinically appropriate intervention, at this time. Patient will be in the hospital for over two midnights. We will monitor medications and make adjustments as indicated. Likely length of stay is three to five days. Coding Level of Care Code Acute Public Relations Account Executive for Chg Fwd Diagnoses Schizophrenia F20.9 Skin lesion of lower extremity L98.9 COPD (chronic obstructive pulmonary disease) J44.9 Post-menopausal bleeding N95.0 AMBER (stress urinary incontinence, female) N39.3 Obesity (BMI 35.0-39.9 without comorbidity) E66.9 Tobacco abuse counseling Z71.6 UTI (urinary tract infection) N39.0
--- NOTE | 2019-08-04 10:58 | PC.RESP ---
SMOKING CESSATION AND PULMONARY REHAB INFORMATION SENT TO PATIENT.
[2019-08-04 14:00] VITALS: BP 109/71; PULSE 68; RESP 20; TEMP 36.6; O2SAT 95
[2019-08-04 22:00] VITALS: BP 121/71; PULSE 82; RESP 20; TEMP 36.7; O2SAT 93
[2019-08-05 06:00] VITALS: BP 115/77; PULSE 70; RESP 20; TEMP 36.7; O2SAT 94
[2019-08-05] MEDS: paliperidone ER 6 mg Tablet PO (06:58)
[2019-08-05] MEDS: tamsulosin 0.4 mg Capsule PO (09:34)
[2019-08-05 14:00] VITALS: BP 113/73; PULSE 74; RESP 18; TEMP 36.7; O2SAT 91
[2019-08-05] MEDS: albuterol 8 gm MDI 2 PUFF INHALATION (19:58)
[2019-08-05 19:59] VITALS: PULSE 98; RESP 22; O2SAT 95
[2019-08-05 20:40] VITALS: BP 124/79; PULSE 78; RESP 20; TEMP 36.7; O2SAT 92
--- NOTE | 2019-08-05 21:02 | P.HP_ITS ---
Providers/Chief Complaint Admitting Physician: Collins Palmer MD Primary Care Provider: LISA Monte Chief Complaint: 96 HR HOLD HPI NPU History of Present Illness Ann Gerber is a 53 year old female who became paranoid, thinking that her had let a lot of strange people into the house. She was brought to the emergency room by police, who examined the household and found no evidence of this clandestine intrusion. On examination in the emergency room she had methamphetamine and marijuana in her urine. She did not tell me anything about that. She did say she has a history of bipolar disease and had responded very well to aripiprazole. Review of Systems Narrative: 10 or more systems reviewed and unremarkable except in HPI and below. The patient does report visual hallucinations. Meds NPU Home Medications Medication Instructions Recorded Confirmed Last Taken Type albuterol sulfate 90 mcg/actuation 2 puff INHALATION Q6H PRN #18 gm 05/14/19 08/03/19 08/03/19 Rx aerosol inhaler paliperidone 6 mg tablet,extended 6 mg PO QAM #30 tab 05/14/19 08/03/19 08/03/19 Rx release 24 hr trazodone 100 mg tablet 100 mg PO DAILY #30 tab 05/14/19 08/03/19 08/02/19 Rx hydrocodone-acetaminophen 1 tab PO Q6H PRN #20 tab 08/02/19 08/03/19 08/03/19 Rx ondansetron HCl [Zofran] 4 mg PO Q6H PRN #20 tab 08/02/19 08/03/19 08/03/19 Rx tamsulosin [Flomax] 0.4 mg PO DAILY #20 cap 08/02/19 08/03/19 08/03/19 Rx Allergies Allergy/AdvReac Type Severity Reaction Status Date / Time No Known Allergies Allergy Verified 08/03/19 10:42 PFSH NPU PFSH: Medical History COPD (chronic obstructive pulmonary disease) Depression Schizophrenia Surgical History History of hernia repair Family History Father Cancer Diabetes Heart disease Family/Other Cervical cancer Social History Smoking and tobacco status: current every day smoker cigarettes Packs smoked per day: 1 Years cigarettes smoked: 13 Alcohol intake: current Alcohol intake frequency: holidays/special occasions only History of recent travel: No Other Psychiatric History: Other Psychiatric History: She has had a diagnosis of bipolar disorder for about 20 to 30 years. She distinctly remembers that Abilify was helpful. Mental Status Exam MSE Comments: The patient is a 53-year-old female who presents at her stated age. She is clearly grief stricken and her affect is tearful, appropriate to her despondent mood. She does have a sense of humor through the tears. Thought processes are integrated and free of any racing, blocking or looseness of association. Speech is of normal rate and volume, without dysarthria, aprosody or pressure. She does verbalize sorrow over the dissolution of her marriage but denies suicidal or homicidal ideation, plan or intent this evening. Cognitive functions appear to be intact. Insight and judgment are fragile. We have to talk about the positive findings in her urine. That will come in the very near future. Vitals/I&O/Wt Last Vital Signs Temp 98.1 F 08/05/19 20:40 Pulse 78 08/05/19 20:40 Resp 20 H 08/05/19 20:40 BP 124/79 08/05/19 20:40 Pulse Ox 92 08/05/19 20:40 Physical Exam Narrative: EXAM NARRATIVE: Const: COMMON NORMALS: no acute distress, patient oriented x3 and alert HENMT: COMMON NORMALS: normocephalic HEAD & SCALP: normocephalic Neck/C-Spine: COMMON NORMALS: full ROM, supple, no meningeal signs and no JVD Resp: COMMON NORMALS: normal respiratory effort, No use of accessory muscles and clear to auscultation bilaterally AUSCULTATION: clear to auscultation bilaterally Cardio: COMMON NORMALS: no JVD, regular rate and regular rhythm RATE: re gular rate RHYTHM: regular rhythm Neuro: COMMON NORMALS: patient oriented x3 SENSORIUM/ORIENTATION: Yes alert MENINGEAL SIGNS: Yes no meningeal signs Psych: APPEARANCE: Yes unkempt ACTIVITY/MOTOR BEHAVIOR: Yes psychomotor agitation, Yes fidgeting and Yes restless MOOD & AFFECT: Yes apathetic THOUGHT CONTENT: Yes delusions and Yes Hallucination(s) present Data NPU : 08/03/19 10:48 08/03/19 10:48 A&P Assessment and plan (1) Methamphetamine abuse: The patient will be educated about her addiction and offered recovery resources. Status: Acute (2) Bipolar disorder current episode depressed: The patient has an appointment with Nelly Luevano, advanced practice nurse at the urgent care center. She intends to discuss her medical problems with her and also her psychiatric problems. I think we can improve on the latter by referring her to behavioral health care. Status: Acute Involuntary Hold Information 96 Hour Hold: 96 Hour Involuntary Admission: No Comments: Patient does have an affidavit in the chart in case we elect to impose an application for a 96- hour involuntary hospitalization. 21 Day Hold: 21 Day Involuntary Hold: No Other Hold: Other Involuntary Hold (indicate): No Attestations NPU Medical Necessity Statement*: This patient will be with us 5-7 nights. Time Spent in Patient Care: Greater than 35 minutes (>than 50% of time spent in counselling and/or direct pt care on unit) . I spent 50 minutes with this patient. Coding Level of Care Code Acute Receptionist Secretary for Gabrielle Perez Diagnoses Methamphetamine abuse F15.10 Bipolar disorder current episode depressed F31.30
[2019-08-05] MEDS: ARIPiprazole 30 mg Tablet 15 MG PO (21:28)
[2019-08-05] MEDS: trazodone 50 mg Tablet PO (21:28)
[2019-08-06 06:00] VITALS: BP 117/72; PULSE 63; RESP 16; TEMP 36.8; O2SAT 93
[2019-08-06] MEDS: paliperidone ER 6 mg Tablet PO (06:49)
[2019-08-06] MEDS: ARIPiprazole 30 mg Tablet 15 MG PO (08:31)
[2019-08-06] MEDS: tamsulosin 0.4 mg Capsule PO (08:32)
[2019-08-06 14:00] VITALS: BP 103/60; PULSE 18; RESP 103; TEMP 36.6; O2SAT 93
--- NOTE | 2019-08-06 18:48 | PM.NPN ---
Subjective NPU Subjective: Interval history: The patient is feeling so much calmer now. She really likes the impact of the Abilify. She is ready to go home, she states, and do so safely. We settled on a discharge plan for tomorrow morning. Medications: Reviewed: Yes Medication Review Details: Current Medications Acetaminophen (Tylenol) 650 mg PO Q4H PRN PRN Reason: MILD PAIN Albuterol Sulfate (Ventolin) 2 puff INHALATION Q6H PRN PRN Reason: shortness of breath or wheezing Last Admin: 08/05/19 19:58 Dose: 2 puff Documented by: Aripiprazole (Abilify) 15 mg PO DAILY [facility] Last Admin: 08/06/19 08:31 Dose: 15 mg Documented by: Benztropine Mesylate (Cogentin) 1 mg PO BID PRN PRN Reason: Mild Extrapyramidal symptoms Camphor/Menthol/Phenol (Blistex) 1 applic TOPICAL Q1H PRN PRN Reason: DRYNESS Diphenhydramine HCl (Benadryl) 50 mg IM ONCE PRN PRN Reason: Severe Extrapyramidal Symptoms Diphenhydramine HCl (Benadryl) 50 mg IM Q4H PRN PRN Reason: Severe Aggression Haloperidol (Haldol) 5 mg PO Q4H PRN PRN Reason: AGITATION Haloperidol Lactate (Haldol Inj) 5 mg IM Q4H PRN PRN Reason: Severe Aggression Hydroxyzine Pamoate (Vistaril) 50 mg PO Q6H PRN PRN Reason: ANXIETY Loperamide HCl (Imodium Capsule) 2 mg PO Q6H PRN PRN Reason: DIARRHEA Lorazepam (Ativan) 2 mg IM Q4H PRN PRN Reason: Severe Aggression Nicotine (Nicoderm 21 Mg Patch) 1 patch TRANSDERMA DAILY PRN PRN Reason: NICOTINE WITHDRAWAL Nicotine Polacrilex (Nicorette) 2 mg BUCCAL Q2H PRN PRN Reason: NICOTINE WITHDRAWAL Olanzapine (Zyprexa Zydis) 5 mg PO Q4H PRN PRN Reason: Agitation/Psychosis Ondansetron HCl (Zofran) 4 mg PO Q6H PRN PRN Reason: NAUSEA AND VOMITING Paliperidone (Invega) 6 mg PO QAM [facility] Last Admin: 08/06/19 06:49 Dose: 6 mg Documented by: Tamsulosin HCl (Flomax) 0.4 mg PO DAILY [facility] Last Admin: 08/06/19 08:32 Dose: 0.4 mg Documented by: Trazodone HCl (Desyrel) 50 mg PO BEDTIME PRN PRN Reason: SLEEP Last Admin: 08/05/19 21:28 Dose: 50 mg Documented by: Mental Status Exam MSE Comments: The patient is a 53-year-old female who presents at her stated age. She is much brighter and her affect is cheerful, appropriate to her improved mood. Her sense of humor persists. Thought processes are integrated and free of any racing, blocking or looseness of association. Speech is of normal rate and volume, without dysarthria, aprosody or pressure. She says she misses her house and denies suicidal or homicidal ideation, plan or intent. Cognitive functions are intact. Insight and judgment are stronger. We have talked about the positive findings in her urine. I cannot live like that anymore, she says. I encouraged her to pursue recovery program or at least NA. Vitals/I&O/Wt Last Vital Signs Temp 98 F 08/06/19 14:00 Pulse 18 L 08/06/19 14:00 Resp 103 H 08/06/19 14:00 BP 103/60 08/06/19 14:00 Pulse Ox 93 08/06/19 14:00 Data NPU : 08/03/19 10:48 08/03/19 10:48 A&P Assessment and plan (1) Bipolar disorder current episode depressed: The patient will require continuing management of Abilify. Status: Acute (2) Methamphetamine abuse: Recovery options were discussed. Status: Acute Involuntary Hold Information 96 Hour Hold: 96 Hour Involuntary Admission: No 21 Day Hold: 21 Day Involuntary Hold: No Other Hold: Other Involuntary Hold (indicate): No Attestations NPU Medical Necessity Statement*: I believe we will be able to get her home tomorrow. We shall see. Coding Level of Care Code Acute Sap Solutions Architect for Gabrielle Fwd Diagnoses Bipolar disorder current episode depressed F31.30 Methamphetamine abuse F15.10
[2019-08-06 21:05] VITALS: PULSE 72; RESP 18; O2SAT 96
[2019-08-06] MEDS: albuterol 8 gm MDI 2 PUFF INHALATION (21:05)
[2019-08-06 21:10] VITALS: PULSE 75; O2SAT 95
[2019-08-06] MEDS: trazodone 50 mg Tablet PO (21:48)
[2019-08-06 22:00] VITALS: BP 136/82; PULSE 75; RESP 18; TEMP 36.6; O2SAT 93
[2019-08-07 06:00] VITALS: BP 146/85; PULSE 65; RESP 17; TEMP 36.9; O2SAT 93
[2019-08-07] MEDS: paliperidone ER 6 mg Tablet PO (06:50)
[2019-08-07] MEDS: ARIPiprazole 30 mg Tablet 15 MG PO (09:29)
[2019-08-07] MEDS: tamsulosin 0.4 mg Capsule PO (09:30)
[2019-08-07 14:00] VITALS: BP 123/79; PULSE 78; RESP 18; TEMP 37.1; O2SAT 94
[2019-08-07] MEDS: nicotine 2 mg Gum BUCCAL (15:39)
[2019-08-07 16:37] VITALS: BP 146/85; PULSE 65; RESP 17; TEMP 36.9; O2SAT 93
--- NOTE | 2019-08-07 16:38 | P.DS_ITS ---
Diagnoses at Discharge Discharge Diagnosis (1) Bipolar disorder current episode depressed: Status: Acute Problem details: I am not sure that this patient actually has bipolar disorder (2) Methamphetamine abuse: Status: Acute Problem details: The patient says, I am done what. She is willing to go to [facility]. She says she is messed up her life twice with it and that is enough. Reason for Visit Reason for Visit: 96 HR HOLD Involuntary Hold Information 96 Hour Hold: 96 Hour Involuntary Admission: No 21 Day Hold: 21 Day Involuntary Hold: No Other Hold: Other Involuntary Hold (indicate): No Mental Status Exam MSE Comments: MSE Comments The patient is a 53-year-old female who presents at her stated age. She is much brighter and her affect is cheerful, appropriate to her improved mood. Her sense of humor persists. Thought processes are integrated and free of any racing, blocking or looseness of association. Speech is of normal rate and volume, without dysarthria, aprosody or pressure. She says she misses her house and denies suicidal or homicidal ideation, plan or intent. Cognitive functions are intact. Insight and judgment are stronger. We have talked about the positive findings in her urine. I'm done with that, she says. I encouraged her to pursue recovery program or at least NA. Discharge Data 2 Vitals: Last Vital Signs Temp 98.5 F 08/07/19 16:37 Pulse 65 08/07/19 16:37 Resp 17 08/07/19 16:37 BP 146/85 08/07/19 16:37 Pulse Ox 93 08/07/19 16:37 Discharge Plan Discharge Patient Disposition: Home, Self-Care Condition: Fair Prescriptions: Continued hydrocodone-acetaminophen 5-325 mg tablet 1 tab PO Q6H PRN (Reason: pain) 30 Days Qty: 20 RF: 1 Zofran 4 mg tablet 4 mg PO Q6H PRN (Reason: nausea and vomiting) 30 Days Qty: 20 RF: 2 Flomax 0.4 mg capsule 0.4 mg PO DAILY 30 Days Qty: 30 RF: 0 trazodone 100 mg tablet 100 mg PO DAILY 30 Days Qty: 30 RF: 2 Ventolin HFA 90 mcg/actuation HFA aerosol inhaler 2 puff INHALATION Q6H PRN (Reason: shortness of breath or wheezing) 30 Days Qty: 18 RF: 2 Invega 6 mg tablet extended release 24hr 6 mg PO QAM 30 Days Qty: 30 RF: 2 Discharge Orders: Discharge Order (Routine); Ordered 08/07/19 Ordered By: David Hernandez Referrals: [facility] [place] [place] [facility] [Outside] - 1-3 days (If interested, you may receive psychiatric medication management at [facility]. Go during the walk-in hours and request initial intake walk-in hours 7:30 a.m. -2:30 p.m. You will probably want to call first to make sure they are taking referral at the clinic. Due to COVID 19 they have been some interviews on the phone. ) [facility] [Outside] (If interested and needed, you can receive substance abuse treatment from [facility]. ) Nelly Luevano FNP [Primary Care Provider] - Discharge Diet: Usual diet Discharge Activity: Resume usual activity Patient Instructions: Bipolar Disorder (DC) Discharge Attestations NPU Time Spent in Discharge Care*: greater than 30 min Specific Discharge Activities: Specific discharge activities: educating patient, discussing with pcp/other providers, discussing with lead case manager/social workers/dc planners, documenting/other paperwork and evaluating patient/reviewing data Time Spent in Smoking Cessation: Time spent discussing smoking cessation with patient: 3 to 10 minutes Coding Level of Care Code Acute Juice Scaleman for Gabrielle Fwd Diagnoses Bipolar disorder current episode depressed F31.30 Methamphetamine abuse F15.10
== END 2019-08-07 17:06 | disposition home or self-care (01) | DRG 897 ==
LOC: ER 13:47 → NP 14:20
PROVIDERS: Family Medicine; Admitting Provider Psychiatry & Neurology Psychiatry; PCP Nurse Practitioner; Visit Provider Psychiatry & Neurology Psychiatry
DX: F15.10 Other stimulant abuse, uncomplicated (principal); F12.90 Cannabis use, unspecified, uncomplicated; J44.9 Chronic obstructive pulmonary disease, unspecified; F32.9 Major depressive disorder, single episode, unspecified; F17.210 Nicotine dependence, cigarettes, uncomplicated
CPT/HCPCS: 12345; 36415; 51798; 74177; 80053; 80306; 80307; 81001; 84443; 85025; 87086; 94640; 96372; 96374; 96375; 99283; 99284; J2270; J2405; J3486; J7030; Q9967

== ENCOUNTER 2019-11-22 09:17 | Emergency (ER) | payer MEDICARE, MEDICAID, SELFPAY ==
[2019-11-22 09:21] VITALS: BP 188/99; PULSE 75; RESP 18; TEMP 36.6; O2SAT 95; BMI 41.1
--- NOTE | 2019-11-22 09:27 | ECG_ITS ---
[facility] Test Date: 2019-11-22 Pat Name: Ann Gerber Department: Room: Gender: Female Clutch Assembler: : 1965 Requested By: Arturo Reeves Order Number: [id number] Kirby MD: Rodrigo Anthony M.D. Measurements Intervals [place] Rate: 66 P: 8 LA: 122 QRS: 69 QRSD: 88 T: 67 QT: 377 QTc: 397 Interpretive Statements SINUS RHYTHM No previous ECG available for comparison Electronically Signed On 11-22-2019 19:07:14 CDT by Rodrigo Anthony M.D. [email or web address]
--- NOTE | 2019-11-22 09:39 | ED_ITS ---
HPI - Dizziness General: Chief Complaint: Dizziness Stated Complaint: DIZZY Time Seen by Provider: 11/22/19 09:24 History of Present Illness: HPI Narrative: [age]-year-old female comes in complaining of dizziness off and on for the last week she has noticed that with any postural changes even sitting up in bed it provokes her dizziness sometimes movement will as well such as rolling over in bed or if she turns her head too quickly. She has had an associated headache. She denies any other symptom no vomiting or diarrhea associated with it MD elicited complaint: dizziness and lightheadedness Onset (ago): week(s) (1) Timing: gradual onset Severity: moderate Description: room spinning Context: change in body position Exacerbating factors: change in body position Relieving factors: remaining still Associated symptoms: Reports nasal congestion; Denies abnormal vaginal bleeding, change in hearing, chest pain, chills, cough, diaphoresis, ear discharge, ear pressure, fevers/chills, headache(s), malaise, nausea, palpitations, rash, short of breath, syncope, tinnitus, vomiting, weakness or other Associated neuro symptoms: Deny confusion, difficulty speaking, dysphagia, diplopia, extremity weakness, facial numbness, facial weakness, gait changes, numbness in extremities or visual changes Review of Systems Const: Denies: chills, malaise or diaphoresis ENMT: Reports: nasal congestion; Denies: ear discharge, change in hearing or tinnitus Card: Denies: chest pain, palpitations or syncope Resp: Denies: dyspnea, productive cough or non-productive cough GI: Denies: nausea, vomiting or dysphagia : Denies: flank pain, difficulty voiding, dysuria, urinary frequency or urinary urgency Skin/Breast: Denies: rash or pruritus Neuro: Denies: headache(s), numbness in extremities or confusion PFSH ED PFSH: Medical History Acute psychosis COPD (chronic obstructive pulmonary disease) Depression Drug-induced psychotic disorder Schizophrenia Surgical History History of hernia repair Family History Father Cancer Diabetes Heart disease Family/Other Cervical cancer Social History (Reviewed 11/22/19 @ 09:41 by JUSTUS Torres Smoking and tobacco status: current every day smoker cigarettes Packs smoked per day: 1 Years cigarettes smoked: 13 Alcohol intake: current Alcohol intake frequency: holidays/special occasions only History of recent travel: No Physical Exam Const: COMMON NORMALS: no acute distress GENERAL APPEARANCE: cooperative a nd comfortable ORIENTATION/CONSCIOUSNESS: Yes awake, Yes oriented to person, Yes oriented to place and Yes oriented to time HENMT: COMMON NORMALS: normocephalic, atraumatic, hearing grossly normal bilaterally, external ears normal, EAC's normal, TM's normal bilaterally, Normal nasal mucous membranes and turbinates present, moist oral mucous membranes and oropharynx normal HEAD & SCALP: normocephalic and atraumatic NOSE: Normal nasal mucous membranes and turbinates present EXTERNAL EAR: Yes external ears normal EXTERNAL AUDITORY CANAL: EAC's normal TYMPANIC MEMBRANE: TM's normal bilaterally Eye: COMMON NORMALS: Equal, round and reactive pupils present, EOMs intact bilaterally, conjunctivae normal and no scleral icterus CONJUNCTIVA: Yes conjunctivae normal PUPIL: Yes Equal, round and reactive pupils present Neck/C-Spine: COMMON NORMALS: full ROM, no lymphadenopathy, supple and no JVD Lymph: LYMPHATIC: no lymphadenopathy noted and no lymphedema noted Resp: COMMON NORMALS: normal respiratory effort, No retractions, No use of accessory muscles and clear to auscultation bilaterally AUSCULTATION: clear to auscultation bilaterally Cardio: COMMON NORMALS: no JVD, regular rate, regular rhythm and No murmurs present (Cardio) RATE: regular rate RHYTHM: regular rhythm GI: COMMON NORMALS: Soft to palpation and No hepatosplenomegaly present AUSCULTATION: Yes normoactive bowel sounds PALPATION: Yes Soft to palpation, No Tenderness to palpation present (GI), No Guarding due to palpation present (GI) and Yes No hepatosplenomegaly present Extremity: COMMON NORMALS: normal to inspection, capillary refill normal, no clubbing, cyanosis or edema, no calf tenderness and no pedal edema Neuro: SENSORIUM/ORIENTATION: Yes oriented to person, Yes oriented to place and Yes oriented to time Skin: COMMON NORMALS: no rashes or lesions noted GENERAL SKIN EXAM: no rashes or lesions noted Course Vital Signs: Vital signs: Vital Signs Temperature 97.8 F 11/22/19 09:21 Pulse Rate 70 11/22/19 11:04 Respiratory Rate 14 11/22/19 11:04 Blood Pressure 138/79 11/22/19 11:04 Pulse Oximetry 98 11/22/19 11:04 MDM - Dizziness MDM Narrative: Medical decision making narrative: Dizziness somewhat improved. Reviewed findings with the patient we will go ahead and discharge home with meclizine PRN if patient has worsening or change of symptoms return otherwise follow-up with PCP. Lab Data: Labs: Lab Results 11/22/19 11/22/19 11/22/19 Range/Units 09:45 09:45 09:51 WBC 13.3 H (4.0-10.0) 10^3/ uL RBC 5.04 (4.1-5.3) 10^6/u L Hgb 15.7 H (11.5-15.3) g/dL Hct 49.6 H (37.0-47.0) % MCV 98.4 (81-99) fL MCH 31.2 (28.0-34.0) pg MCHC 31.7 (30.0-36.0) g/dL RDW 13.9 (12.1-15.1) % Plt Count 329 (130-400) 10^3/c mm MPV 9.3 (7.4-10.4) fL Neut % (Auto) 43.9 % Lymph % (Auto) 45.5 % Wolfe % (Auto) 6.8 % Eos % (Auto) 2.4 % Baso % (Auto) 0.8 % Neut # (Auto) 5.86 (1.8-7.7) 10^3/u L Lymph # (Auto) 6.1 H (0.8-4.8) 10^3/u L Wolfe # (Auto) 0.9 (0.2-0.9) 10^3/u L Eos # (Auto) 0.3 (0.0-0.8) 10^3/u L Baso # (Auto) 0.1 (0.0-0.1) 10^3/u L Nucleated RBC % (a uto) 0 % Nucleated RBCs # 0.0 /100WBC Sodium 140 (136-145) mmol/L Potassium 4.6 (3.5-5.1) mmol/L Chloride 106 (98-107) mmol/L Carbon Dioxide 24 (22-29) mmol/L Anion Gap 14.6 (5-19) BUN 15 (6-20) mg/dL Creatinine 0.5 (0.5-0.9) mg/dL GFR Calculation 128.6 (90-130) mL/min Glucose 101 (65-115) mg/dL Calculated Osmolal ity 291 (285-295) mOsm/k g Calcium 9.3 (8.5-10.5) mg/dL Total Bilirubin 0.2 (0.15-1.2) mg/dL AST 13 (0-32) U/L ALT 17 (0-33) U/L Alkaline Phosphata se 67 (35-105) IU/L Total Protein 7.2 (6.6-8.7) g/dL Albumin 4.4 (3.5-5.2) g/dL Globulin 2.8 (1.3-4.6) g/dL Urine Color Straw (Yellow) Urine Appearance Clear (CLEAR) Urine pH 6.5 (5-7) Ur Specific Gravit y 1.005 (1.005-1.030) Urine Protein Neg (Negative) Urine Glucose (UA) Norm (Normal) Urine Ketones Negative (Negative) Urine Blood Neg (Negative) Urine Nitrate Negative (Negative) Urine Bilirubin Neg (Negative) Urine Urobilinogen Norm (Negative) mg/dL Ur Leukocyte Caitlyn ase Negative (Negative) Discharge Plan Discharge Patient Disposition: Home Clinical Impression: Acute labyrinthitis Condition: Stable Prescriptions: New meclizine 25 mg tablet 25 mg PO QID PRN (Reason: dizziness) Qty: 20 RF: 0 No Action trazodone 100 mg tablet 100 mg PO DAILY 30 Days Qty: 30 RF: 2 albuterol sulfate [Ventolin HFA] 90 mcg/actuation HFA aerosol inhaler 2 puff INHALATION Q6H PRN (Reason: shortness of breath or wheezing) 30 Days Qty: 18 RF: 2 paliperidone [Invega] 6 mg tablet extended release 24hr 6 mg PO QAM 30 Days Qty: 30 RF: 2 Discharge Orders: Discharge Order (Routine); Ordered 11/22/19 Ordered By: Arturo Nicole Referrals: Nelly Luevano FNP [Primary Care Provider] - Discharge Diet: Usual diet Discharge Activity: Increase activity as tolerated Patient Instructions: Labyrinthitis (ED) Activity Restrictions/Additional Instructions: Use PRN medicines as above if worsens follow-up with your primary care doctor Discharge Date/Time: 11/22/19 11:05 Coding Level of Care Code ED Home Child Care Provider for Gabrielle Fwd Exam Comprehensive
[2019-11-22 09:45] VITALS: BP 152/66; BP 159/104; BP 164/97; PULSE 71; PULSE 73; PULSE 77
[2019-11-22 09:52] LABS: Basophils # 0.1 10^3/uL (0.0-0.1); Basophils % 0.8 %; Eosinophils # 0.3 10^3/uL (0.0-0.8); Eosinophils % 2.4 %; Hematocrit 49.6 % (37.0-47.0); Hemoglobin 15.7 g/dL (11.5-15.3); Lymphocytes # 6.1 10^3/uL (0.8-4.8); Lymphocytes % 45.5 %; Mean Corpuscular HGB Conc 31.7 g/dL (30.0-36.0); Mean Corpuscular Hemoglobin 31.2 pg (28.0-34.0); Mean Corpuscular Volume 98.4 fL (81-99); Mean Platelet Volume 9.3 fL (7.4-10.4); Monocytes # 0.9 10^3/uL (0.2-0.9); Monocytes % 6.8 %; Neutrophils # 5.86 10^3/uL (1.8-7.7); Neutrophils % 43.9 %; Nucleated Red Blood Cells % 0 %; Platelet Count 329 10^3/cmm (130-400); Red Blood Count 5.04 10^6/uL (4.1-5.3); Red Cell Distribution Width 13.9 % (12.1-15.1); White Blood Count 13.3 10^3/uL (4.0-10.0)
[2019-11-22 09:56] LABS: Add Urine Microscopic? NO
[2019-11-22 10:01] LABS: Bilirubin Urine Neg (Negative); Blood Urine Neg (Negative); Glucose Urine UA Norm (Normal); Ketones Urine Negative (Negative); Leukocyte Esterase Urine Negative (Negative); Nitrate Urine Negative (Negative); Protein Urine Neg (Negative); Specific Gravity, Urine 1.005 (1.005-1.030); Urine Appearance Clear (CLEAR); Urine Color Straw (Yellow); Urobilinogen Urine Norm (Negative); pH Urine 6.5 (5-7)
[2019-11-22 10:13] VITALS: BP 133/87; PULSE 71; RESP 20; O2SAT 94
[2019-11-22 10:15] LABS: Alanine Aminotransferase 17 U/L (0-33); Albumin Level 4.4 g/dL (3.5-5.2); Alkaline Phosphatase 67 IU/L (35-105); Anion Gap 14.6 (5-19); Aspartate Amino Transferase 13 U/L (0-32); Blood Urea Nitrogen 15 mg/dL (6-20); Calcium 9.3 mg/dL (8.5-10.5); Carbon Dioxide 24 mmol/L (22-29); Chloride 106 mmol/L (98-107); Globulin 2.8 g/dL (1.3-4.6); Glomerular Filtration Rate 128.6 mL/min (90-130); Glucose 101 mg/dL (65-115); Osmolality Calculated 291 mOsm/kg (285-295); Potassium 4.6 mmol/L (3.5-5.1); Sodium 140 mmol/L (136-145); Total Bilirubin 0.2 mg/dL (0.15-1.2); Total Protein 7.2 g/dL (6.6-8.7)
[2019-11-22 11:04] VITALS: BP 138/79; PULSE 70; RESP 14; O2SAT 98
== END 2019-11-22 11:05 | disposition home or self-care (01) ==
PROVIDERS: Emergency Provider Family Medicine; PCP Nurse Practitioner
DX: H83.09 Labyrinthitis, unspecified ear (principal); J44.9 Chronic obstructive pulmonary disease, unspecified; F17.210 Nicotine dependence, cigarettes, uncomplicated
CPT/HCPCS: 12345; 36415; 80053; 81003; 85025; 93005; 96374; 99283

== ENCOUNTER → 2019-12-30 13:43 | Outpatient (BNVA) | payer MEDICARE, MEDICAID, SELFPAY | PROVIDERS: PCP Nurse Practitioner; Visit Provider Psychiatry & Neurology Psychiatry | DX: F43.12 Post-traumatic stress disorder, chronic (principal); F33.2 Major depressive disorder, recurrent severe without psychotic features; F41.1 Generalized anxiety disorder; F15.20 Other stimulant dependence, uncomplicated; F12.20 Cannabis dependence, uncomplicated; F17.200 Nicotine dependence, unspecified, uncomplicated; F10.21 Alcohol dependence, in remission | CPT/HCPCS: 99204 ==

== ENCOUNTER 2020-02-04 12:31 | Emergency (ER) | payer MEDICARE, MEDICAID, SELFPAY ==
[2020-02-04 12:36] VITALS: BP 129/95; PULSE 88; RESP 14; TEMP 37.1; O2SAT 96; BMI 42.9
--- NOTE | 2020-02-04 12:41 | XR_ITS ---
WS: [id number] Portable AP upright chest, 02/04/2020 Clinical Data: chest pain Comparison: Portable chest, 02/13/2019. Findings: No nodules, masses or effusions are seen. The heart is normal. The pulmonary vascularity is not increased. No pneumonia or pneumothorax is seen. The diaphragms are flattened. Monitor leads are on the chest wall. XR/XR chest 1V portable [id number] Impression: Hyperinflation.
--- NOTE | 2020-02-04 12:41 | ECG_ITS ---
[facility] Test Date: 2020-02-04 Pat Name: Ann Gerber Department: Room: Gender: Female [employer] Lead: : 1965 Requested By: Trish Iraheta I Order Number: [id number] Kirby MD: Keli Zuniga M.D. 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 [id number]
--- NOTE | 2020-02-04 13:00 | W.ED.CHESTPA ---
HPI - Chest Pain General: Chief Complaint: Chest Pain Stated Complaint: CHEST PAIN Time Seen by Provider: 02/04/20 12:32 Source: patient Mode of arrival: EMS Limitations: no limitations History of Present Illness: HPI narrative: 54-year-old female patient with no prior cardiac history presents to the emergency department with a 45-minute history of retrosternal chest pain. Pain is constant, nonradiating, no nausea or vomiting. No dizziness or diaphoresis. She called an ambulance and in the ambulance she was given aspirin and 2 sublingual nitroglycerin which relieved her pain. She is here to be evaluated. complaint: chest pain Onset (ago): minute(s) (45) Timing of current episode: constant Prior episodes: No Onset: during rest Pain location: substernal Pain radiation: none Severity: severe Quality: dull Relieving factors: nitroglycerin Exacerbating factors: nothing Associated symptoms: Deny abdominal pain, diaphoresis, dyspnea, fever(s), leg edema, nausea, palpitations, sense of impending doom, syncope or vomiting Treatment prior to arrival: aspirin and nitroglycerin Review of Systems General: Reports: 10 or more systems reviewed and unremarkable except in HPI and below Const: Denies: fever(s) or diaphoresis Eyes: Denies: change in vision or blurry vision ENMT: Denies: throat pain, enlarged tonsils, odynophagia, hoarseness, mouth pain or swelling of lips/tongue Card: Denies: palpitations or syncope Resp: Denies: dyspnea GI: Denies: abdominal pain, nausea or vomiting : Denies: flank pain, difficulty voiding, dysuria, urinary frequency, urinary urgency or urinary hesitancy Musc: Denies: neck pain, back pain or extremity swelling Skin/Breast: Denies: rash, pruritus or erythema Neuro: Denies: headache(s), numbness in extremities or weakness in extremities Endo: Denies: polyuria, polydipsia or tired all the time PFS ED PFSH: Medical History (Reviewed 02/04/20 @ 13:01 by Trish Iraheta MD, [facility] [place]) Acute psychosis Chronic nasal congestion COPD (chronic obstructive pulmonary disease) Depression Drug-induced psychotic disorder Morbid obesity with BMI of 40.0-44.9, adult Schizophrenia Skin lesion of lower extremity Surgical History (Reviewed 02/04/20 @ 13:02 by Trish Iraheta MD, [facility] [place]) History of hernia repair Family History (Reviewed 02/04/20 @ 13:02 by Trish Iraheta MD, [facility] [place]) Father Cancer Diabetes Heart disease Family/Other Cervical cancer Social History (Reviewed 02/04/20 @ 13:02 by Trish Iraheta MD, [facility] [place]) Smoking and tobacco status: current every day smoker cigarettes Packs smoked per day: 1 Years cigarettes smoked: 13 Quit status (tobacco): has tried quititng Number of times tried to quit tobacco: 5 Second hand smoke exposure: No Alcohol intake: current Alcohol intake frequency: holidays/special occasions only History of recent travel: No Current gender identity: Female Physical Exam Const: COMMON NORMALS: no acute distress, average body habitus, patient oriented x3, no limitations, healthy appearing, alert and well nourished HENMT: COMMON NORMALS: normocephalic, atraumatic and moist oral mucous membranes HEAD & SCALP: normocephalic and atraumatic Neck/C-Spine: COMMON NORMALS: no meningeal signs and no JVD Chest: COMMONS NORMALS: normal inspection of the chest and normal palpation of entire chest wall Resp: COMMON NORMALS: normal respiratory effort, No retractions, No use of accessory muscles, clear to auscultation bilaterally and percussion normal AUSCULTATION: clear to auscultation bilaterally PERCUSSION: percussion normal Cardio: COMMON NORMALS: no JVD, regular rate, regular rhythm, S1 normal heart sound present, S2 normal heart sound present, No gallops present (Cardio), No clicks present (Cardio), No murmurs present (Cardio), No rub (Cardio) and Peripheral pulses 2+ throughout RATE: regular rate RHYTHM: regular rhythm HEART SOUNDS: S1 normal heart sound present and S2 normal heart sound present PERIPHERAL PULSES: Peripheral pulses 2+ throughout GI: COMMON NORMALS: Normal to inspection, nondistended, normoactive bowel sounds present, Soft to palpation, non-tender, No hepatosplenomegaly present, no masses and no bruits PALPATION: Yes Soft to palpation and Yes No hepatosplenomegaly present Extremity: COMMON NORMALS: normal to inspection, full ROM, capillary refill normal, no calf tenderness and no pedal edema Neuro: COMMON NORMALS: patient oriented x3 SENSORIUM/ORIENTATION: Yes alert MENINGEAL SIGNS: Yes no meningeal signs Skin: COMMON NORMALS: no rashes or lesions noted, no wounds, turgor normal, no jaundice, no petechiae and no mottling GENERAL SKIN EXAM: no rashes or lesions noted and turgor normal Course Reevaluation(s): Reevaluation #1: Discussed her lab and imaging findings with her. -2-hour delta on the high-sensitivity troponin. Only mildly elevated baseline troponin. We will discharge her home with no new orders. She voiced understanding and is in agreement with the plan. Time: 16:11 Vital Signs: Vital signs: Vital Signs Temperature 98.7 F 02/04/20 12:36 Pulse Rate 80 02/04/20 14:58 Respiratory Rate 16 02/04/20 14:58 Blood Pressure 154/80 02/04/20 14:58 Pulse Oximetry 98 02/04/20 14:58 MDM - Chest Pain MDM Narrative: Medical decision making narrative: 54-year-old female patient who presented to the emergency department with chest pain. Heart score is 3, which means she is low risk for an adverse cardiac event in the next 6 weeks. She is discharged home to f/u with her PCP Differential Diagnosis: Cardiac arrest differential diagnosis: Likely acute respiratory failure and acute myocardial infarction Medical Records: Attestation: I reviewed the patient's medical records. Lab Data: Attestation: I reviewed the patient's lab results. Labs: Lab Results 02/04/20 02/04/20 02/04/20 Range/Units 12:15 12:15 12:15 WBC 12.7 H (4.0-10.0) 10^3/ uL RBC 4.62 (4.1-5.3) 10^6/u L Hgb 14.3 (11.5-15.3) g/dL Hct 43.6 (37.0-47.0) % MCV 94.4 (81-99) fL MCH 31.0 (28.0-34.0) pg MCHC 32.8 (30.0-36.0) g/dL RDW 13.8 (12.1-15.1) % Plt Count 332 (130-400) 10^3/c mm MPV 9.7 (7.4-10.4) fL Neut % (Auto) 59.5 % Lymph % (Auto) 32.6 % Harlan % (Auto) 5.8 % Eos % (Auto) 1.1 % Baso % (Auto) 0.5 % Neut # (Auto) 7.57 (1.8-7.7) 10^3/u L Lymph # (Auto) 4.2 (0.8-4.8) 10^3/u L Harlan # (Auto) 0.7 (0.2-0.9) 10^3/u L Eos # (Auto) 0.1 (0.0-0.8) 10^3/u L Baso # (Auto) 0.1 (0.0-0.1) 10^3/u L Nucleated RBC % (a uto) 0 % Nucleated RBCs # 0.0 /100WBC PT 12.40 (12.1-14.9) SECO NDS INR 0.90 (0.8-1.2) D-Dimer 0.38 (0-0.59) ug/mIFE U Sodium 140 (136-145) mmol/L Potassium 4.1 (3.5-5.1) mmol/L Chloride 104 (98-107) mmol/L Carbon Dioxide 23 (22-29) mmol/L Anion Gap 17.1 (5-19) BUN 16 (6-20) mg/dL Creatinine 0.7 (0.5-0.9) mg/dL GFR Calculation 87.2 L (90-130) mL/min Glucose 99 (65-115) mg/dL Calculated Osmolal ity 291 (285-295) mOsm/k g Calcium 9.5 (8.5-10.5) mg/dL Total Bilirubin 0.4 (0.15-1.2) mg/dL AST 21 (0-32) U/L ALT 24 (0-33) U/L Alkaline Phosphata se 90 (35-105) IU/L Creatine Kinase 169 (26-192) U/L Troponin T Baselin e (0-10) ng/L Troponin T 120 Min zach (0-10) ng/L Delta Troponin T (0-10) ABS# NT-Pro-B Natriuret Pep 182 H (0-125) pg/mL Total Protein 6.2 L (6.6-8.7) g/dL Albumin 4.5 (3.5-5.2) g/dL Globulin 1.7 (1.3-4.6) g/dL Lipase 22 (13-60) U/L 02/04/20 02/04/20 Range/Units 12:15 15:25 WBC (4.0-10.0) 10^3/ uL RBC (4.1-5.3) 10^6/u L Hgb (11.5-15.3) g/dL Hct (37.0-47.0) % MCV (81-99) fL MCH (28.0-34.0) pg MCHC (30.0-36.0) g/dL RDW (12.1-15.1) % Plt Count (130-400) 10^3/c mm MPV (7.4-10.4) fL Neut % (Auto) % Lymph % (Auto) % Harlan % (Auto) % Eos % (Auto) % Baso % (Auto) % Neut # (Auto) (1.8-7.7) 10^3/u L Lymph # (Auto) (0.8-4.8) 10^3/u L Harlan # (Auto) (0.2-0.9) 10^3/u L Eos # (Auto) (0.0-0.8) 10^3/u L Baso # (Auto) (0.0-0.1) 10^3/u L Nucleated RBC % (a uto) % Nucleated RBCs # /100WBC PT (12.1-14.9) SECO NDS INR (0.8-1.2) D-Dimer (0-0.59) ug/mIFE U Sodium (136-145) mmol/L Potassium (3.5-5.1) mmol/L Chloride (98-107) mmol/L Carbon Dioxide (22-29) mmol/L Anion Gap (5-19) BUN (6-20) mg/dL Creatinine (0.5-0.9) mg/dL GFR Calculation (90-130) mL/min Glucose (65-115) mg/dL Calculated Osmolal ity (285-295) mOsm/k g Calcium (8.5-10.5) mg/dL Total Bilirubin (0.15-1.2) mg/dL AST (0-32) U/L ALT (0-33) U/L Alkaline Phosphata se (35-105) IU/L Creatine Kinase (26-192) U/L Troponin T Baselin e 12 H (0-10) ng/L Troponin T 120 Min zach 11.68 H (0-10) ng/L Delta Troponin T -0.32 L (0-10) ABS# NT-Pro-B Natriuret Pep (0-125) pg/mL Total Protein (6.6-8.7) g/dL Albumin (3.5-5.2) g/dL Globulin (1.3-4.6) g/dL Lipase (13-60) U/L Imaging Data^: CXR: Attestation: I personally reviewed and interpreted this imaging study as follows: Radiologist's impression: [address] [address] XRay Report Signed Patient: Letty Gerber #: [id number] : 1965Acct#:[id number] Age/Sex: 54 / FADM Date: 02/04/20 Loc: ERRoom/Bed: Attending Dr: Ordering Provider/Ordering MD: Trish Iraheta MD, [facility] [place] Date of Service: 02/04/20 Procedure(s): XR chest 1V portable [id number] Accession Number(s): [id number] Report Number: [id number] WS: [id number] Portable AP upright chest, 02/04/2020 Clinical Data: chest pain Comparison: Portable chest, 02/13/2019. Findings: No nodules, masses or effusions are seen. The heart is normal. The pulmonary vascularity is not increased. No pneumonia or pneumothorax is seen. The diaphragms are flattened. Monitor leads are on the chest wall. XR/XR chest 1V portable [id number] Impression: Hyperinflation. Dictated By:Pearl Peguero MD Signed By:Pearl Peguero MDSigned Date/Time:02/04/20 1344 DD/ 1343 EKG Data^: EKG 1: Attestation: I personally reviewed and interpreted this EKG as follows: EKG interpretation date: 02/04/20 EKG interpretation time: 12:41 Prior EKG tracings: not available for review Interpretation: Normal sinus rhythm. Heart rate [address] changes. Normal axis. Discharge Plan Discharge Patient Disposition: Home Clinical Impression: Chest pain Qualifiers: Chest pain type: unspecified Qualified Code(s): R07.9 - Chest pain, unspecified Condition: Stable Prescriptions: Continued albuterol sulfate [Ventolin HFA] 90 mcg/actuation HFA aerosol inhaler 2 puff INHALATION Q6H PRN (Reason: shortness of breath or wheezing) 30 Days Qty: 18 RF: 3 doxepin 50 mg capsule 50 mg PO BEDTIME@21 Qty: 30 RF: 2 prazosin 5 mg capsule 5 mg PO BEDTIME@21 Qty: 30 RF: 2 varenicline 1 mg tablet 1 mg PO BID Qty: 56 RF: 2 lamotrigine 25 mg tablet 25 mg PO DAILY@10 Qty: 105 RF: 1 Discharge Orders: Discharge ED (Routine); Ordered 02/04/20 Ordered By: Trish Iraheta Referrals: Francisco J Nicole MD [Primary Care Provider] - 1-3 days Discharge Diet: Usual diet Discharge Activity: Increase activity as tolerated Patient Instructions: Chest Pain (ED) Activity Restrictions/Additional Instructions: Return for any new or worsening symptoms. Follow-up with your primary care provider within 2 days. Continue home medications. Next Coding Level of Care Code ED Embossing Machine Operator for Gabrielle Fwd Exam Comprehensive
[2020-02-04 13:01] VITALS: BP 126/80; PULSE 80; RESP 21; O2SAT 95
[2020-02-04 13:16] LABS: Basophils # 0.1 10^3/uL (0.0-0.1); Basophils % 0.5 %; Eosinophils # 0.1 10^3/uL (0.0-0.8); Eosinophils % 1.1 %; Hematocrit 43.6 % (37.0-47.0); Hemoglobin 14.3 g/dL (11.5-15.3); Lymphocytes # 4.2 10^3/uL (0.8-4.8); Lymphocytes % 32.6 %; Mean Corpuscular HGB Conc 32.8 g/dL (30.0-36.0); Mean Corpuscular Volume 94.4 fL (81-99); Mean Platelet Volume 9.7 fL (7.4-10.4); Monocytes # 0.7 10^3/uL (0.2-0.9); Monocytes % 5.8 %; Neutrophils # 7.57 10^3/uL (1.8-7.7); Neutrophils % 59.5 %; Nucleated Red Blood Cells % 0 %; Platelet Count 332 10^3/cmm (130-400); Red Blood Count 4.62 10^6/uL (4.1-5.3); Red Cell Distribution Width 13.8 % (12.1-15.1); White Blood Count 12.7 10^3/uL (4.0-10.0)
[2020-02-04 13:44] LABS: Alanine Aminotransferase 24 U/L (0-33); Albumin Level 4.5 g/dL (3.5-5.2); Alkaline Phosphatase 90 IU/L (35-105); Anion Gap 17.1 (5-19); Aspartate Amino Transferase 21 U/L (0-32); Blood Urea Nitrogen 16 mg/dL (6-20); Calcium 9.5 mg/dL (8.5-10.5); Carbon Dioxide 23 mmol/L (22-29); Chloride 104 mmol/L (98-107); Creatine Phosphokinase 169 U/L (26-192); Globulin 1.7 g/dL (1.3-4.6); Glomerular Filtration Rate 87.2 mL/min (90-130); Glucose 99 mg/dL (65-115); Lipase 22 U/L (13-60); NT Pro B Type Natriuretic Pept 182 pg/mL (0-125); Osmolality Calculated 291 mOsm/kg (285-295); Potassium 4.1 mmol/L (3.5-5.1); Sodium 140 mmol/L (136-145); Total Bilirubin 0.4 mg/dL (0.15-1.2); Total Protein 6.2 g/dL (6.6-8.7)
[2020-02-04 13:51] LABS: Troponin(5th) Baseline 12 ng/L (0-10)
[2020-02-04 14:04] VITALS: BP 157/91; PULSE 80; RESP 18; O2SAT 97
[2020-02-04 14:12] LABS: D Dimer 0.38 ug/mIFEU (0-0.59)
[2020-02-04 14:58] VITALS: BP 154/80; PULSE 80; RESP 16; O2SAT 98
[2020-02-04 15:57] LABS: Troponin 5 2HR 11.68 ng/L (0-10)
[2020-02-04 16:05] LABS: Troponin 5 2HR Delta -0.32 ABS# (0-10)
== END 2020-02-04 16:19 | disposition home or self-care (01) ==
PROVIDERS: Emergency Provider Family Medicine; PCP Family Medicine Adult Medicine
DX: R07.9 Chest pain, unspecified (principal); J44.9 Chronic obstructive pulmonary disease, unspecified; F17.210 Nicotine dependence, cigarettes, uncomplicated
CPT/HCPCS: 12345; 71045; 80053; 82550; 83690; 83880; 84484; 85025; 85378; 85610; 93005; 99282; 99283

== ENCOUNTER 2020-02-26 18:35 | Emergency (ER) | payer MEDICARE, MEDICAID, SELFPAY ==
[2020-02-26 18:50] VITALS: BP 120/82; PULSE 74; RESP 20; TEMP 36.8; O2SAT 95; BMI 42.9
[2020-02-26 19:18] LABS: Basophils # 0.1 10^3/uL (0.0-0.1); Basophils % 0.6 %; Eosinophils # 0.2 10^3/uL (0.0-0.8); Eosinophils % 1.9 %; Hematocrit 45.6 % (37.0-47.0); Hemoglobin 14.6 g/dL (11.5-15.3); Lymphocytes # 4.7 10^3/uL (0.8-4.8); Lymphocytes % 37.3 %; Mean Corpuscular Hemoglobin 31.2 pg (28.0-34.0); Mean Corpuscular Volume 97.4 fL (81-99); Mean Platelet Volume 9.6 fL (7.4-10.4); Monocytes # 0.6 10^3/uL (0.2-0.9); Monocytes % 4.5 %; Neutrophils # 6.93 10^3/uL (1.8-7.7); Neutrophils % 55.5 %; Nucleated Red Blood Cells % 0 %; Platelet Count 303 10^3/cmm (130-400); Red Blood Count 4.68 10^6/uL (4.1-5.3); Red Cell Distribution Width 14.2 % (12.1-15.1); White Blood Count 12.5 10^3/uL (4.0-10.0)
[2020-02-26 19:27] LABS: Add Urine Microscopic? NO
[2020-02-26 19:33] LABS: Bilirubin Urine Neg (Negative); Blood Urine Neg (Negative); Glucose Urine UA Norm (Normal); Ketones Urine Negative (Negative); Leukocyte Esterase Urine Negative (Negative); Nitrate Urine Negative (Negative); Protein Urine Neg (Negative); Urine Appearance Clear (CLEAR); Urine Color Yellow (Yellow); Urobilinogen Urine Norm (Negative); pH Urine 6 (5-7)
[2020-02-26 21:19] LABS: Alanine Aminotransferase 18 U/L (0-33); Albumin Level 4.2 g/dL (3.5-5.2); Alkaline Phosphatase 83 IU/L (35-105); Anion Gap 12.8 (5-19); Aspartate Amino Transferase 12 U/L (0-32); Blood Urea Nitrogen 20 mg/dL (6-20); Calcium 10.1 mg/dL (8.5-10.5); Carbon Dioxide 25 mmol/L (22-29); Chloride 106 mmol/L (98-107); Globulin 2.7 g/dL (1.3-4.6); Glomerular Filtration Rate 104.2 mL/min (90-130); Glucose 101 mg/dL (65-115); Lipase 30 U/L (13-60); Osmolality Calculated 291 mOsm/kg (285-295); Potassium 4.8 mmol/L (3.5-5.1); Sodium 139 mmol/L (136-145); Total Bilirubin 0.2 mg/dL (0.15-1.2); Total Protein 6.9 g/dL (6.6-8.7)
--- NOTE | 2020-02-26 23:20 | W.ED.FEMALGU ---
HPI - Female Genitourinary General: Chief complaint: Urogenital-Female Stated complaint: RIGHT FLANK PAIN Time Seen by Provider: 02/26/20 23:16 Source: patient Mode of arrival: ambulatory Limitations: no limitations History of Present Illness: HPI Narrative: Ann is a nice 54-year-old female who comes in complaining of right flank pain. She states she was diagnosed with kidney stones approximately 2 months ago but she does not think they ever passed. The pain she is had is been constant and described as sharp and stabbing. She denies any gross hematuria in her urine. She denies urinary frequency, urgency or dysuria. Patient states the pain starts up high along her right side and radiates down her groin. She denies any other complaints or concerns. Associated symptoms: Reports abdominal pain; Deny headache(s), nausea or syncope Review of Systems Const: Denies: fever(s), chills, body aches, fatigue, malaise or diaphoresis Eyes: Denies: change in vision, blurry vision, photophobia, eye discomfort, eye discharge, eye redness or yellow eyes ENMT: Denies: throat pain, odynophagia, hoarseness, swelling of lips/tongue, ear or mastoid pain, ear discharge, change in hearing or nasal discharge Card: Denies: chest pain, palpitations, irregular heart rhythm, edema, lightheadedness, syncope, pre-syncope, dyspnea on exertion or orthopnea Resp: Denies: dyspnea, productive cough, non-productive cough, wheezing, hemoptysis or chest congestion GI: Reports: abdominal pain; Denies: nausea, vomiting, hematemesis, coffee ground emesis, heartburn, diarrhea, constipation, GI cramping, hematochezia or melena : Reports: flank pain; Denies: dysuria, urinary frequency, urinary urgency or hematuria Musc: Denies: neck pain, back pain, extremity pain, extremity swelling, joint pain, joint swelling, joint redness, joint warmth or joint stiffness Skin/Breast: Denies: rash, pruritus, erythema, skin pain or skin tenderness Neuro: Denies: headache(s), numbness in extremities, weakness in extremities, sensory changes, lack of coordination, difficulty walking, dizziness, vertigo, confusion, Slurred speech present or seizure-like activity Bar/Lymph: Denies: easy bruising, easy bleeding, petechiae, purpura or enlarged lymph nodes All/Imm: Denies: urticaria, throat swelling, tongue swelling, facial swelling or acute wheezing PFSH ED PFSH: Medical History Acute psychosis Chronic nasal congestion COPD (chronic obstructive pulmonary disease) Depression Drug-induced psychotic disorder Morbid obesity with BMI of 40.0-44.9, adult Schizophrenia Skin lesion of lower extremity Surgical History History of hernia repair Family History Father Cancer Diabetes Heart disease Family/Other Cervical cancer Social History Smoking and tobacco status: current every day smoker cigarettes Packs smoked per day: 1 Years cigarettes smoked: 13 Quit status (tobacco): has tried quititng Number of times tried to quit tobacco: 5 Second hand smoke exposure: No Alcohol intake: current Alcohol intake frequency: holidays/special occasions only History of recent travel: No Current gender identity: Female Physical Exam Const: COMMON NORMALS: no acute distress, patient oriented x3, no limitations and alert GENERAL APPEARANCE: cooperative HENMT: COMMON NORMALS: normocephalic, atraumatic, external ears normal, EAC's normal and Normal external nose present HEAD & SCALP: normal to inspection, normocephalic and atraumatic FACE & SINUS: normal facial exam and face symmetric NOSE: Normal external nose present and Normal nares present EXTERNAL EAR: Yes external ears normal EXTERNAL AUDITORY CANAL: EAC's normal MOUTH: Normal oral and palatal mucosa present, lip normal and tongue normal Eye: COMMON NORMALS: Equal, round and reactive pupils present and conjunctivae normal GENERAL EYE: appearance normal, both eyes and all related structures ALIGNMENT: Yes alignment normal PERIORBITAL: periorbital findings normal EYELID: eyelids normal CONJUNCTIVA: Yes conjunctivae normal SCLERA: sclerae normal PUPIL: Yes Equal, round and reactive pupils present Neck/C-Spine: COMMON NORMALS: full ROM, no lymphadenopathy, supple, no meningeal signs and no JVD GENERAL: Yes normal visual inspection and Yes trachea midline Chest: COMMONS NORMALS: normal inspection of the chest and normal palpation of entire chest wall Resp: COMMON NORMALS: normal respiratory effort, No retractions, No use of accessory muscles and clear to auscultation bilaterally EFFORT & INSPECTION: Yes able to speak in complete sentences and Yes symmetric chest movement AUSCULTATION: clear to auscultation bilaterally, no crackles, no rales, no rhonchi and no wheezes Cardio: COMMON NORMALS: no JVD, regular rate, regular rhythm, S1 normal heart sound present and S2 normal heart sound present RATE: regular rate RHYTHM: regular rhythm HEART SOUNDS: S1 normal heart sound present, S2 normal heart sound present, no click, no gallops, no murmurs and no rubs GI: COMMON NORMALS: Soft to palpation and No hepatosplenomegaly present PALPATION: Yes Soft to palpation, No Tenderness to palpation present (GI), No Guarding due to palpation present (GI), No Rigid due to palpation, Yes No hepatosplenomegaly present, No Hernia present, No Palpable mass present and No Pulsatile mass present : COMMON NORMALS: Yes no CVA tenderness BLADDER/KIDNEY EXAM: Yes no CVA tenderness EXTERNAL FEMALE EXAM: No Hernia present Back/Pelvis: COMMON NORMALS: no CVA tenderness, thoracic and lumbar spine normal to inspection, no thoracic nor lumbar tenderness and thoraco-lumbar ROM normal Extremity: COMMON NORMALS: normal to inspection, full ROM, capillary refill normal, no joint enlargement, no clubbing, cyanosis or edema and no calf tenderness Neuro: COMMON NORMALS: patient oriented x3, CN's II-XII intact bilaterally, moves all extremities, no focal motor deficits and no sensory deficits noted SENSORIUM/ORIENTATION: Yes alert MENINGEAL SIGNS: Yes no meningeal signs SPEECH: speech normal Psych: COMMON NORMALS: mental status grossly normal, Normal thought process present, cooperative, normal affect, speech normal and activity/motor behavior normal SPEECH: Yes normal speech THOUGHT PROCESS: Normal thought process present Skin: COMMON NORMALS: no rashes or lesions noted, turgor normal, no jaundice, no petechiae and no mottling GENERAL SKIN EXAM: no rashes or lesions noted and turgor normal Course Vital Signs: Vital signs: Vital Signs Temperature 98.1 F 02/27/20 00:47 Pulse Rate 89 02/27/20 01:29 Respiratory Rate 20 H 02/27/20 01:29 Blood Pressure 131/73 02/27/20 01:29 Pulse Oximetry 93 02/27/20 01:29 MDM - Female MDM Narrative: Medical decision making narrative: Patient is relieved to hear that her CT scan is normal. Her lab work is unremarkable. There is no sign of appendicitis or gallbladder inflammation. Liver enzymes normal. This time the patient's pain cannot be reproduced to palpation. Agrees to follow-up with regular doctor or return to the ER for symptoms change or worsen. Lab Data: Labs: Lab Results 02/26/20 02/26/20 02/26/20 Range/Units 19:10 19:10 19:10 WBC 12.5 H (4.0-10.0) 10^3/ uL RBC 4.68 (4.1-5.3) 10^6/u L Hgb 14.6 (11.5-15.3) g/dL Hct 45.6 (37.0-47.0) % MCV 97.4 (81-99) fL MCH 31.2 (28.0-34.0) pg MCHC 32.0 (30.0-36.0) g/dL RDW 14.2 (12.1-15.1) % Plt Count 303 (130-400) 10^3/c mm MPV 9.6 (7.4-10.4) fL Neut % (Auto) 55.5 % Lymph % (Auto) 37.3 % [place] % (Auto) 4.5 % Eos % (Auto) 1.9 % Baso % (Auto) 0.6 % Neut # (Auto) 6.93 (1.8-7.7) 10^3/u L Lymph # (Auto) 4.7 (0.8-4.8) 10^3/u L [place] # (Auto) 0.6 (0.2-0.9) 10^3/u L Eos # (Auto) 0.2 (0.0-0.8) 10^3/u L Baso # (Auto) 0.1 (0.0-0.1) 10^3/u L Nucleated RBC % (a uto) 0 % Nucleated RBCs # 0.0 /100WBC Sodium Cancelled Potassium Cancelled Chloride Cancelled Carbon Dioxide Cancelled Anion Gap Cancelled BUN Cancelled Creatinine Cancelled GFR Calculation Cancelled Glucose Cancelled Calculated Osmolal ity Cancelled Calcium Cancelled Total Bilirubin Cancelled AST Cancelled ALT Cancelled Alkaline Phosphata se Cancelled Total Protein Cancelled Albumin Cancelled Globulin Cancelled Lipase (13-60) U/L Urine Color Yellow (Yellow) Urine Appearance Clear (CLEAR) Urine pH 6 (5-7) Ur Specific Gravit y 1.020 (1.005-1.030) Urine Protein Neg (Negative) Urine Glucose (UA) Norm (Normal) Urine Ketones Negative (Negative) Urine Blood Neg (Negative) Urine Nitrate Negative (Negative) Urine Bilirubin Neg (Negative) Urine Urobilinogen Norm (Negative) mg/dL Ur Leukocyte Caitlyn ase Negative (Negative) 02/26/20 Range/Units 20:53 WBC (4.0-10.0) 10^3/ uL RBC (4.1-5.3) 10^6/u L Hgb (11.5-15.3) g/dL Hct (37.0-47.0) % MCV (81-99) fL MCH (28.0-34.0) pg MCHC (30.0-36.0) g/dL RDW (12.1-15.1) % Plt Count (130-400) 10^3/c mm MPV (7.4-10.4) fL Neut % (Auto) % Lymph % (Auto) % [place] % (Auto) % Eos % (Auto) % Baso % (Auto) % Neut # (Auto) (1.8-7.7) 10^3/u L Lymph # (Auto) (0.8-4.8) 10^3/u L [place] # (Auto) (0.2-0.9) 10^3/u L Eos # (Auto) (0.0-0.8) 10^3/u L Baso # (Auto) (0.0-0.1) 10^3/u L Nucleated RBC % (a uto) % Nucleated RBCs # /100WBC Sodium 139 Potassium 4.8 Chloride 106 Carbon Dioxide 25 Anion Gap 12.8 BUN 20 Creatinine 0.6 GFR Calculation 104.2 Glucose 101 Calculated Osmolal ity 291 Calcium 10.1 Total Bilirubin 0.2 AST 12 ALT 18 Alkaline Phosphata se 83 Total Protein 6.9 Albumin 4.2 Globulin 2.7 Lipase 30 (13-60) U/L Urine Color (Yellow) Urine Appearance (CLEAR) Urine pH (5-7) Ur Specific Gravit y (1.005-1.030) Urine Protein (Negative) Urine Glucose (UA) (Normal) Urine Ketones (Negative) Urine Blood (Negative) Urine Nitrate (Negative) Urine Bilirubin (Negative) Urine Urobilinogen (Negative) mg/dL Ur Leukocyte Caitlyn ase (Negative) Imaging Data: CT Abd/Pel: Radiologist's impression: [id number] [place] [address] CT Scan Report Signed Patient: Letty Gerber #: [id number] : 1965Acct#:[id number] Age/Sex: 54 / FADM Date: 02/26/20 Loc: ERRoom/Bed: Attending Dr: Ordering Provider/Ordering MD: Kerrie Fraley DO Date of Service: 02/26/20 Procedure(s): CT kidney stone 48022 Accession Number(s): [id number] Report Number: [id number] PROCEDURE INFORMATION: Exam: CT Abdomen And Pelvis Without Contrast Exam date and time: 02/26/2020 12:25 AM Age: 54 years old Clinical indication: Abdominal pain; Right; Prior surgery; Surgery date: 6+ months; Surgery type: Hernia; Patient HX: C/O R flank pain; Additional info: Flank/abdominal pain TECHNIQUE: Imaging protocol: Computed tomography of the abdomen and pelvis without contrast. Radiation optimization: All CT scans at this facility use at least one of these dose optimization techniques: automated exposure control; mA and/or kV adjustment per patient size (includes targeted exams where dose is matched to clinical indication); or iterative reconstruction. COMPARISON: CT abdomen pelvis w con* [id number] 08/02/2019 7:02 AM RADIATION DOSE METRICS: Total DLP (mGy-cm): 1826.71 FINDINGS: Liver: There is hypoattenuation of the hepatic parenchyma compatible with fatty infiltration. Gallbladder and bile ducts: Normal. No calcified stones. No ductal dilation. Pancreas: Normal. No ductal dilation. Spleen: Normal. No splenomegaly. Adrenal glands: Normal. No mass. Kidneys and ureters: Punctate calcifications are seen in the lateral aspect of the left kidney measuring up to 1.7 mm likely representing cluster of tiny nonobstructing renal calculi. Stomach and bowel: Unremarkable. No obstruction. No mucosal thickening. Appendix: The appendix is visualized and is normal in configuration. Intraperitoneal space: Unremarkable. No free air. No significant fluid collection. Vasculature: Unremarkable. No abdominal aortic aneurysm. Lymph nodes: Unremarkable. No enlarged lymph nodes. Urinary bladder: Unremarkable as visualized. Reproductive: Unremarkable as visualized. Bones/joints: Unremarkable. No acute fracture. Soft tissues: Unremarkable. CT/CT kidney stone [id number] IMPRESSION: 1. Fatty infiltration of the liver 2. Punctate calcifications seen within the left kidney laterally likely representing nonobstructing renal calculi. Radiation Dose CTDIVOL = (mGy): DLP = 1826.71 (mGy-cm) Dictated By:Amor Hubbard MD Signed By:Amor Hubbard MDSigned Date/Time:02/27/2058 DD/ Discharge Plan Discharge Patient Disposition: Home Clinical Impression: Acute flank pain Condition: Stable Prescriptions: No Action albuterol sulfate [Ventolin HFA] 90 mcg/actuation HFA aerosol inhaler 2 puff INHALATION Q6H PRN (Reason: shortness of breath or wheezing) 30 Days Qty: 18 RF: 3 doxepin 50 mg capsule 50 mg PO BEDTIME@21 Qty: 30 RF: 2 prazosin 5 mg capsule 5 mg PO BEDTIME@21 Qty: 30 RF: 2 varenicline 1 mg tablet 1 mg PO BID Qty: 56 RF: 2 lamotrigine 25 mg tablet 25 mg PO DAILY@10 Qty: 105 RF: 1 Discharge Orders: Discharge ED (Routine); Ordered 02/27/20 Ordered By: Kerrie Farley Referrals: Francisco J Nicole MD [Primary Care Provider] - 1-3 days Branden Oliva MD [Physician] - 1-3 days Discharge Diet: Advance as tolerated Discharge Activity: Resume usual activity Patient Instructions: Abdominal Pain (ED) Coding Level of Care Code ED Nutritional Assistant for Chg Fwd Exam Comprehensive
[2020-02-26] MEDS: sodium chloride 0.9% 1,000 ML 999 ML IV (23:44)
[2020-02-26] MEDS: ondansetron 2 mg/ML SDV 2 mL 4 MG IVP (23:44)
[2020-02-26 23:47] VITALS: RESP 18; O2SAT 94
[2020-02-26] MEDS: morphine 4 mg/mL SDV 1 mL IVP (23:47)
[2020-02-27 00:03] VITALS: BP 116/76; PULSE 71; RESP 18; O2SAT 93
[2020-02-27 00:47] VITALS: BP 119/75; PULSE 72; RESP 18; TEMP 36.7; O2SAT 93
[2020-02-27 01:29] VITALS: BP 131/73; PULSE 89; RESP 20; O2SAT 93
== END 2020-02-27 01:29 | disposition home or self-care (01) ==
PROVIDERS: Nurse Practitioner Family; Emergency Provider Emergency Medicine; PCP Family Medicine Adult Medicine
DX: R10.9 Unspecified abdominal pain (principal); J44.9 Chronic obstructive pulmonary disease, unspecified; F17.210 Nicotine dependence, cigarettes, uncomplicated
CPT/HCPCS: 12345; 74176; 80053; 81003; 83690; 85025; 96361; 96374; 96375; 99282; 99283; J2270; J2405; J7030

== ENCOUNTER → 2020-03-16 10:25 | Outpatient (BNVA) | payer MEDICARE, MEDICAID, SELFPAY | PROVIDERS: PCP Family Medicine Adult Medicine; Visit Provider Psychiatry & Neurology Psychiatry | DX: F41.1 Generalized anxiety disorder (principal); F43.12 Post-traumatic stress disorder, chronic; F33.2 Major depressive disorder, recurrent severe without psychotic features; F14.21 Cocaine dependence, in remission; F10.21 Alcohol dependence, in remission; F17.200 Nicotine dependence, unspecified, uncomplicated; F12.20 Cannabis dependence, uncomplicated; F15.20 Other stimulant dependence, uncomplicated | CPT/HCPCS: 99213 ==

== ENCOUNTER → 2020-04-18 07:57 | Outpatient (BNVA) | payer MEDICARE, MEDICAID, SELFPAY | PROVIDERS: PCP Family Medicine Adult Medicine; Visit Provider Psychiatry & Neurology Psychiatry | DX: F41.1 Generalized anxiety disorder (principal); F33.2 Major depressive disorder, recurrent severe without psychotic features; F43.12 Post-traumatic stress disorder, chronic; F14.21 Cocaine dependence, in remission; F10.21 Alcohol dependence, in remission; F17.200 Nicotine dependence, unspecified, uncomplicated; F12.20 Cannabis dependence, uncomplicated; F15.20 Other stimulant dependence, uncomplicated | CPT/HCPCS: 99213 ==

== ENCOUNTER → 2020-09-01 14:16 | Outpatient (BNVA) | payer MEDICARE, MEDICAID, SELFPAY | PROVIDERS: PCP Family Medicine Adult Medicine; Visit Provider Psychiatry & Neurology Psychiatry | DX: F17.200 Nicotine dependence, unspecified, uncomplicated (principal); F33.2 Major depressive disorder, recurrent severe without psychotic features; F41.1 Generalized anxiety disorder; F43.12 Post-traumatic stress disorder, chronic | CPT/HCPCS: 99214 ==

== ENCOUNTER → 2020-11-30 12:03 | Outpatient (BNVA) | payer MEDICARE, MEDICAID, SELFPAY | PROVIDERS: PCP Family Medicine Adult Medicine; Visit Provider Psychiatry & Neurology Psychiatry | DX: F41.1 Generalized anxiety disorder (principal); F33.2 Major depressive disorder, recurrent severe without psychotic features; F43.12 Post-traumatic stress disorder, chronic; F17.210 Nicotine dependence, cigarettes, uncomplicated; F12.20 Cannabis dependence, uncomplicated; F15.20 Other stimulant dependence, uncomplicated; F14.21 Cocaine dependence, in remission; F10.21 Alcohol dependence, in remission | CPT/HCPCS: 99214 ==

== ENCOUNTER 2021-02-01 03:06 | Emergency (ER) | payer MEDICARE, MEDICAID, SELFPAY ==
[2021-02-01 03:10] VITALS: BP 143/89; PULSE 95; RESP 18; TEMP 36.9; O2SAT 94; BMI 44.6
--- NOTE | 2021-02-01 03:17 | XRR_ITS ---
PROCEDURE INFORMATION: Exam: XR Chest Exam date and time: 02/01/2021 3:17 AM Age: 55 years old Clinical indication: Shortness of breath; Patient HX: Worsening SOB. History of copd. TECHNIQUE: Imaging protocol: XR of the chest. Views: 1 view. COMPARISON: CR XR chest 1V portable [id number] 02/04/2020 12:46 PM FINDINGS: Lungs: Unremarkable. No consolidation. Pleural spaces: Unremarkable. No pleural effusion. No pneumothorax. Heart/Mediastinum: Unremarkable. No cardiomegaly. Bones/joints: Unremarkable. Soft tissues: Examination limited by body habitus. XR/XR chest 1V portable [id number] IMPRESSION: 1. Examination limited by body habitus. 2. No acute disease. Radiation Dose CTDIVOL = (mGy): DLP = (mGy-cm)
--- NOTE | 2021-02-01 03:25 | ED_ITS ---
HPI - SOB/Dyspnea General: Chief Complaint: Shortness of Breath/Dyspnea Stated Complaint: SOB wants breathing treatment Time Seen by Provider: 02/01/21 03:12 Source: patient Mode of arrival: ambulatory Limitations: no limitations History of Present Illness: HPI Narrative: 55-year-old female has a history of COPD states she has had increased cough congestion wheezing that worsened tonight. States her breathing treatments do help but is worsened. Patient's not on any steroids at this time she has had a slight cough denies any fever denies any chest pain she denies any vomiting or diarrhea. She does have audible wheezes Associated symptoms: Deny abdominal pain, chest pain, fever(s), nausea or vomiting Review of Systems Const: Denies: fever(s), chills, body aches or change in appetite Eyes: Denies: blurry vision or eye discomfort ENMT: Denies: throat pain or dental pain Card: Denies: chest pain Resp: Reports: dyspnea, non-productive cough and wheezing GI: Denies: abdominal pain, nausea, vomiting or diarrhea : Denies: dysuria Musc: Denies: neck pain or back pain Skin/Breast: Denies: rash Neuro: Denies: headache(s) Psych: Denies: depression Bar/Lymph: Denies: easy bruising All/Imm: Denies: urticaria PFSH ED PFSH: Medical History Acute psychosis Alcohol use disorder, severe, in sustained remission Cannabis use disorder, severe, dependence Chronic nasal congestion Cocaine use disorder, severe, in sustained remission COPD (chronic obstructive pulmonary disease) Depression Drug-induced psychotic disorder Lumbar disc disease Methamphetamine use disorder, severe, dependence Morbid obesity with BMI of 40.0-44.9, adult Osteoarthritis involving multiple joints on both sides of body Psychiatric care Schizophrenia Skin lesion of lower extremity Tobacco abuse counseling UTI (urinary tract infection) Surgical History History of dilation and curettage (~1994) History of hernia repair Family History Father Cancer Diabetes Heart disease Family/Other Cervical cancer Social History Smoking and tobacco status: current every day smoker cigarettes Packs smoked per day: 1 Years cigarettes smoked: 13 Quit status (tobacco): has tried quititng Number of times tried to quit tobacco: 5 Second hand smoke exposure: No Alcohol intake: current Alcohol intake frequency: holidays/special occasions only History of recent travel: No Current gender identity: Female Physical Exam Const: COMMON NORMALS: no acute distress, patient oriented x3 and healthy appearing HENMT: COMMON NORMALS: normocephalic and atraumatic HEAD & SCALP: normocephalic and atraumatic Eye: COMMON NORMALS: Equal, round and reactive pupils present and EOMs intact bilaterally PUPIL: Yes Equal, round and reactive pupils present Neck/C-Spine: COMMON NORMALS: full ROM and supple Chest: COMMONS NORMALS: normal inspection of the chest and normal palpation of entire chest wall Resp: COMMON NORMALS: normal respiratory effort, No retractions and No use of accessory muscles AUSCULTATION: wheezes Cardio: COMMON NORMALS: regular rate, regular rhythm and No murmurs present (Cardio) RATE: regular rate RHYTHM: regular rhythm GI: COMMON NORMALS: Normal to inspection, nondistended, normoactive bowel sounds present, Soft to palpation, non-tender and no masses PALPATION: Yes Soft to palpation Extremity: COMMON NORMALS: normal to inspection and full ROM Neuro: COMMON NORMALS: patient oriented x3, moves all extremities and no focal motor deficits Psych: COMMON NORMALS: mental status grossly normal, Normal thought process present and cooperative THOUGHT PROCESS: Normal thought process present Skin: COMMON NORMALS: no rashes or lesions noted and no wounds GENERAL SKIN EXAM: no rashes or lesions noted Course Vital Signs: Vital signs: Vital Signs Temperature 98.4 F 02/01/21 03:10 Pulse Rate 80 02/01/21 04:23 Respiratory Rate 18 02/01/21 04:23 Blood Pressure 143/89 02/01/21 03:10 Pulse Oximetry 92 02/01/21 04:23 MDM - SOB/Dyspnea MDM Narrative: Medical decision making narrative: Patient presents here with COPD exacerbation she feels much improved after breathing treatment x-ray shows no signs of pneumonia blood work is normal we will place her on 5 days of steroids along with Z-Mik she is stable for discharge follow-up PCP and return if worsening. Lab Data: Labs: Lab Results 02/01/21 02/01/2121 03:31 03:31 03:31 WBC 10.7 10^3/uL H 10 ^3/uL (4.0-10.0) RBC 5.02 10^6/uL 10^6 /uL (4.1-5.3) Hgb 16.0 g/dL H g/dL (11.5-15.3) Hct 47.7 % H % (37.0-47.0) MCV 95.0 fl fl (81-99) MCH 31.9 pg pg (28.0-34.0) MCHC 33.5 g/dL g/dL (30.0-36.0) RDW 14.2 % % (12.1-15.1) Plt Count 317 10^3/cmm 10^3 /cmm (130-400) MPV 9.4 fL fL (7.4-10.4) Neut % (Auto) 55.4 % % Lymph % (Auto) 34.0 % % [place] % (Auto) 9.1 % % Eos % (Auto) 0.4 % % Baso % (Auto) 0.6 % % Neut # (Auto) 5.92 10^3/uL 10^3 /uL (1.8-7.7) Lymph # (Auto) 3.6 10^3/uL 10^3/ uL (0.8-4.8) [place] # (Auto) 1.0 10^3/uL H 10^ 3/uL (0.2-0.9) Eos # (Auto) 0.0 10^3/uL 10^3/ uL (0.0-0.8) Baso # (Auto) 0.1 10^3/uL 10^3/ uL (0.0-0.1) Nucleated RBC % (a uto) 0 % % Nucleated RBCs # 0.0 /100WBC /100W BC Sodium 139 mmol/L mmol/L (136-145) Potassium 3.8 mmol/L mmol/L (3.5-5.1) Chloride 104 mmol/L mmol/L (98-107) Carbon Dioxide 20 mmol/L L mmol/ L (22-29) Anion Gap 18.8 (5-19) BUN 9 mg/dL mg/dL (6-20) Creatinine 0.5 mg/dL mg/dL (0.5-0.9) GFR Calculation 128.1 mL/min mL/m in (90-130) Glucose 89 mg/dL mg/dL (65-115) Calculated Osmolal ity 286 mOsm/kg mOsm/ kg (285-295) Calcium 9.2 mg/dL mg/dL (8.5-10.5) Total Bilirubin 0.2 mg/dL mg/dL (0.15-1.2) AST 31 U/L U/L (0-32) ALT 34 U/L H U/L (0-33) Alkaline Phosphata se 80 IU/L IU/L (35-105) NT-Pro-B Natriuret Pep 70 pg/mL pg/mL (0-125) Total Protein 7.3 g/dL g/dL (6.6-8.7) Albumin 4.5 g/dL g/dL (3.5-5.2) Globulin 2.8 g/dL g/dL (1.3-4.6) SARS-CoV-2 Ag (Rap id) Negative (Negative) Imaging Data^: CXR: My impression: No acute abnormality EKG Data^: EKG 1: Attestation: I personally reviewed and interpreted this EKG as follows: EKG Interpretation Date: 02/01/21 EKG interpretation time: 03:22 Interpretation: nsr hr [address] or t wave abnormalities qrs 93 qtc 412 Discharge Plan Discharge Patient Disposition: Home Clinical Impression: COPD (chronic obstructive pulmonary disease) Qualifiers: COPD type: chronic bronchitis Chronic bronchitis type: unspecified Qualified Code(s): J42 - Unspecified chronic bronchitis Condition: Stable Prescriptions: New azithromycin 250 mg tablet See Rx Instructions .ROUTE .COMPLEX Qty: 6 RF: 0 prednisone 50 mg tablet 50 mg PO DAILY Qty: 5 RF: 0 No Action meloxicam 7.5 mg tablet 7.5 mg PO DAILY Qty: 60 RF: 3 trazodone 50 mg tablet 100 mg PO .HS Qty: 60 RF: 2 nicotine 21 mg/24 hr patch 24 hour 1 patch transdermal Q24H Qty: 28 RF: 2 albuterol sulfate [Ventolin HFA] 90 mcg/actuation HFA aerosol inhaler 2 puff INHALATION Q6H PRN (Reason: shortness of breath or wheezing) 30 Days Qty: 18 RF: 3 varenicline [Chantix Continuing Month Box] 1 mg tablet 1 mg PO BID Qty: 56 RF: 0 risperidone [Risperdal] 1 mg tablet 1 mg PO BID Qty: 60 RF: 2 Discharge Orders: Discharge ED (Routine); Ordered 02/01/21 Ordered By: Dick Parada Referrals: Francisco J Nicole MD [Primary Care Provider] - 1-3 days Discharge Diet: Advance as tolerated Discharge Activity: Resume usual activity Patient Instructions: Chronic Bronchitis (ED) Coding Level of Care Code ED Travel Counselor for Chg Fwd Exam Comprehensive
[2021-02-01 03:40] LABS: Basophils # 0.1 10^3/uL (0.0-0.1); Basophils % 0.6 %; Eosinophils % 0.4 %; Hematocrit 47.7 % (37.0-47.0); Lymphocytes # 3.6 10^3/uL (0.8-4.8); Mean Corpuscular HGB Conc 33.5 g/dL (30.0-36.0); Mean Corpuscular Hemoglobin 31.9 pg (28.0-34.0); Mean Platelet Volume 9.4 fL (7.4-10.4); Monocytes % 9.1 %; Neutrophils # 5.92 10^3/uL (1.8-7.7); Neutrophils % 55.4 %; Nucleated Red Blood Cells % 0 %; Platelet Count 317 10^3/cmm (130-400); Red Blood Count 5.02 10^6/uL (4.1-5.3); Red Cell Distribution Width 14.2 % (12.1-15.1); White Blood Count 10.7 10^3/uL (4.0-10.0)
[2021-02-01 03:59] LABS: SARS Covid-2 Antigen Negative (Negative)
[2021-02-01 04:04] VITALS: RESP 19
[2021-02-01 04:12] LABS: Alanine Aminotransferase 34 U/L (0-33); Albumin Level 4.5 g/dL (3.5-5.2); Alkaline Phosphatase 80 IU/L (35-105); Anion Gap 18.8 (5-19); Aspartate Amino Transferase 31 U/L (0-32); Blood Urea Nitrogen 9 mg/dL (6-20); Calcium 9.2 mg/dL (8.5-10.5); Carbon Dioxide 20 mmol/L (22-29); Chloride 104 mmol/L (98-107); Globulin 2.8 g/dL (1.3-4.6); Glomerular Filtration Rate 128.1 mL/min (90-130); Glucose 89 mg/dL (65-115); NT Pro B Type Natriuretic Pept 70 pg/mL (0-125); Osmolality Calculated 286 mOsm/kg (285-295); Potassium 3.8 mmol/L (3.5-5.1); Sodium 139 mmol/L (136-145); Total Bilirubin 0.2 mg/dL (0.15-1.2); Total Protein 7.3 g/dL (6.6-8.7)
[2021-02-01] MEDS: ipratropium-albuterol 3 mL Neb INHALATION (04:22)
[2021-02-01 04:23] VITALS: PULSE 80; RESP 18; O2SAT 92
[2021-02-01 04:58] VITALS: BP 174/97; PULSE 88; RESP 20; O2SAT 93
== END 2021-02-01 04:59 | disposition home or self-care (01) ==
PROVIDERS: Emergency Provider Emergency Medicine; PCP Family Medicine Adult Medicine
DX: J42 Unspecified chronic bronchitis (principal); F17.210 Nicotine dependence, cigarettes, uncomplicated; Z20.822 Contact with and (suspected) exposure to COVID-19
CPT/HCPCS: 71045; 80053; 83880; 85025; 87426; 94640; 96374; 99283; J2930; J7611

== ENCOUNTER → 2021-05-29 10:05 | Outpatient (BNVA) | payer MEDICARE, MEDICAID, SELFPAY | PROVIDERS: PCP Family Medicine Adult Medicine; Visit Provider Family Medicine Adult Medicine | DX: Z13.6 Encounter for screening for cardiovascular disorders (principal); E66.01 Morbid (severe) obesity due to excess calories; Z68.41 Body mass index [BMI] 40.0-44.9, adult; Z87.898 Personal history of other specified conditions; J42 Unspecified chronic bronchitis | CPT/HCPCS: 80053; 80061; 83036; 84443; 85025 ==

== ENCOUNTER → 2021-07-17 07:10 | Outpatient (BNVA) | payer MEDICARE, MEDICAID, SELFPAY | PROVIDERS: PCP Family Medicine Adult Medicine; Visit Provider Psychiatry & Neurology Psychiatry | DX: F41.1 Generalized anxiety disorder (principal); F33.2 Major depressive disorder, recurrent severe without psychotic features; F43.12 Post-traumatic stress disorder, chronic; F17.200 Nicotine dependence, unspecified, uncomplicated | CPT/HCPCS: 99213 ==